=== PATIENT | female | born 1945 | race Caucasian/White ===

== ENCOUNTER 2018-04-15 08:41 | Inpatient (IN) | payer MEDICARE, OTHER ==
[2018-04-13 10:22] LABS: BASOPHILS # (AUTO) 0.01 x10^3/uL (0-0.1); BASOPHILS % (AUTO) 0 % (0-1); EOSINOPHILS # (AUTO) 0.19 x10^3/uL (0-0.4); EOSINOPHILS % (AUTO) 3 % (1-7); LYMPHOCYTES # (AUTO) 0.77 x10^3/uL (1-3.4); LYMPHOCYTES % (AUTO) 12 % (22-44); MD NO; MEAN CORPUSCULAR HEMOGLOBIN 35.1 pg (27.0-34.8); MEAN CORPUSCULAR HGB CONC 33.6 g/dL (32.4-35.8); MEAN CORPUSCULAR VOLUME 104.4 fL (80-100); MEAN PLATELET VOLUME 6.4 fL (7.4-10.4); MONOCYTES # (AUTO) 0.46 x10^3/uL (0.2-0.8); MONOCYTES % (AUTO) 7 % (2-9); NEUTROPHILS # (AUTO) 4.78 x10^3/uL (1.8-6.8); NEUTROPHILS % (AUTO) 77 % (42-75); PLATELET COUNT 237 x10^3/uL (130-400); RED BLOOD COUNT 4.03 x10^6/uL (3.82-5.3); RED CELL DISTRIBUTION WIDTH 14.8 % (9.6-15.2)
[2018-04-13 10:32] LABS: INTERNATIONAL NORMALIZED RATIO 1.08 (0.93-1.1); PROTHROMBIN TIME 11.2 Seconds (9.6-11.5)
[2018-04-13 10:36] LABS: ALBUMIN 3.3 g/dL (3.4-5.0); ANION GAP 5 mmol/L (5-15); CALCIUM 8.8 mg/dL (8.5-10.1); CHLORIDE 107 mmol/L (98-107)
[2018-04-13 10:38] LABS: HEMOGLOBIN A1C 5.5 % (4.2-6.3)
[2018-04-13 10:39] LABS: ALANINE AMINOTRANSFERASE 27 U/L (12-78); ALKALINE PHOSPHATASE 111 U/L (45-117); BILIRUBIN,TOTAL 0.8 mg/dL (0.2-1.0); CREATININE 0.81 mg/dL (0.55-1.02); TOTAL PROTEIN 7.4 g/dL (6.4-8.2)
[~2018-04-15] VITALS: Ht 160 cm; Wt 86.6 kg
[~2018-04-15 08:41] MED LIST: ALBU8.5H5 INH; ASCO10004 PO; ATEN25TA PO; ATEN50TA41 PO; BUPR300T4 PO; CALCIUM, MAG, ZINC PO; CELE200C PO; CETI10TA24 PO; CHOL20002 PO; COLE625T12 PO; CYCL1DRO EACHEYE; DIAZ5TAB PO; DIPH1TAB PO; DOCU-131 PO; EPINEPHRINE 1 MG/ML, 1ML ONE; ERGO500017 PO; FERR325T18 PO; FLUO10CA7 PO; FLUO40CA9 PO; FLUT16SP NS; FLUT1DIS3 INH; FURO20TA3 PO; GLUC1CAP48 PO; HYDR-3237 PO; HYDR-3307 PO; HYDR-838 PO; KETOROLAC 60 MG/2 ML ONE; LACT1CAP15 PO; MESA500C PO; MORP20CA18 PO; MORP40CA2 PO; MULT-224 PO; MUPI22OI2 NAS; NYST15OI2 TP; OMEP1CAP25 PO; POTA20TA6 PO; PRAM0.25 PO; QUIN324C3 OP; QUIN324C3 PO; RISE5TAB PO; RIVA10TA PO; ROPIvacaine/PF 0.5%, 30 ML ONE; SODIUM CHLORIDE 0.9% 100 ML ONE; TORS20TA2 PO; TRAM50TA2 PO; TRANEXAMIC ACID 100 MG/ML, 10ML ONE; VITA150T PO; ZOLP10TA5 PO; ZOLP5TAB6 PO; [UNRECOGNIZED DRUG - CODE] PO; [UNRECOGNIZED DRUG - OTHER] PO; [UNRECOGNIZED DRUG - OTHER] TP
[2018-04-15] MEDS ORDERED: GABAPENTIN 300 MG CAPSULE PO ONE (09:00)
[2018-04-15] MEDS ORDERED: ACETAMINOPHEN 500 MG TABLET PO ONE (09:00)
[2018-04-15] MEDS ORDERED: VANCOMYCIN PER PHARMACY MC ONE (09:02)
[2018-04-15] MEDS ORDERED: ALBUTEROL SULFATE 2.5 MG/3 ML NPPB PRN ×2 (09:30→10:00)
[2018-04-15] MEDS ORDERED: EPHEDRINE 50 MG/ML, 1ML IVPush PRN (09:30)
[2018-04-15] MEDS ORDERED: ONDANSETRON ODT 8 MG PO ONE (09:30)
[2018-04-15] MEDS ORDERED: HYDROcodone/APAP 7.5-325MG/15ML UDC PO PRN (09:30)
[2018-04-15] MEDS ORDERED: VANCOMYCIN 1,500 MG in SODIUM CHLORIDE 0.9% 250 ML IV ONE (09:30)
[2018-04-15] MEDS ORDERED: hydrALAzine 20 MG/ML, 1ML IV PRN (09:30)
[2018-04-15] MEDS ORDERED: PHARMACOKINETIC CONSULTATION MC ONE (09:30)
[2018-04-15] MEDS ORDERED: METOPROLOL 1 MG/ML, 5ML IV PRN (09:30)
[2018-04-15] MEDS ORDERED: OXYcodone IR 5MG TABLET PO ONE (09:30)
[2018-04-15] MEDS ORDERED: PROMETHAZINE 25 MG/ML, 1ML IV PRN (09:30)
[2018-04-15] MEDS ORDERED: HALOPERIDOL 5 MG/ML IV PRN (09:30)
[2018-04-15] MEDS ORDERED: LABETALOL 5MG/ML, 20ML IV PRN (09:30)
[2018-04-15] MEDS ORDERED: LACTATED RINGERS 1,000 ML IV SCH (09:48)
[2018-04-15] MEDS ORDERED: MAGNESIUM HYDROXIDE 8%, 30ML UDC PO PRN (10:00)
[2018-04-15] MEDS ORDERED: OXYcodone IR 5MG TABLET PO PRN (10:00)
[2018-04-15] MEDS ORDERED: BISACODYL 10 MG SUPP PR PRN (10:00)
[2018-04-15] MEDS ORDERED: ACETAMINOPHEN 650 MG/20.3 ML UDC PO PRN (10:00)
[2018-04-15] MEDS ORDERED: SENNA/DOCUSATE TABLET PO PRN (10:00)
[2018-04-15] MEDS ORDERED: DIPHENHYDRAMINE 50 MG CAPSULE PO PRN (10:00)
[2018-04-15] MEDS ORDERED: DIPHENOXYLATE/ATROPINE TABLET PO PRN (10:00)
[2018-04-15] MEDS ORDERED: RISEDRONATE SODIUM PO SCH (10:00)
[2018-04-15] MEDS ORDERED: ZOLPIDEM 5MG TABLET PO PRN (10:00)
[2018-04-15] MEDS ORDERED: ONDANSETRON 2MG/ML, 2ML IV PRN (10:00)
[2018-04-15] MEDS ORDERED: (Fluticasone/Salmeterol** (Advair 250-50 Diskus**) 1 PUFF) INH PRN (10:00)
[2018-04-15] MEDS ORDERED: SCOPOLAMINE PATCH, 1.5MG PATCH.TD72 TD ONE ×3 (10:00→10:01)
[2018-04-15] MEDS ORDERED: ONDANSETRON 4 MG TABLET PO PRN (10:00)
[2018-04-15] MEDS ORDERED: FENTANYL PF 250 MCG/5ML ONE (10:02)
[2018-04-15] MEDS ORDERED: CLINDAMYCIN 150 MG/ML, 6ML ONE (10:03)
[2018-04-15] MEDS ORDERED: LIDOCAINE 4%, 4 ML SYR/CANN TP ONE (10:04)
[2018-04-15] MEDS ORDERED: DEXAMETHASONE 4 MG/ML, 1ML ONE (10:16)
[2018-04-15] MEDS ORDERED: ROCURONIUM 10MG/ML,5ML ONE (10:16)
[2018-04-15] MEDS ORDERED: PROPOFOL 10 MG/ML, 20ML ONE (10:16)
[2018-04-15] MEDS ORDERED: GLYCOPYRROLATE 0.2MG/1ML, 5ML ONE (11:17)
[2018-04-15] MEDS ORDERED: NEOSTIGMINE 1 MG/ML, 10ML ONE ×2 (11:17)
[2018-04-15] MEDS ORDERED: morphine SULFATE 10 MG/ML, 1ML ONE (12:06)
[2018-04-15] MEDS ORDERED: FENTANYL PF 100 MCG/2ML ONE (12:06)
[2018-04-15] MEDS: FENTANYL PF 100 MCG/2ML IV PRN ×3 (12:09→12:33)
[2018-04-15] MEDS: MORPHINE SULFATE 4 MG/ML, 1ML IVPush PRN ×3 (12:17→12:56)
[2018-04-15] MEDS ORDERED: VANCOMYCIN 1,000 MG ONE (12:36)
[2018-04-15 13:35] VITALS: BP 104/64
[2018-04-15] MEDS: NS + 20MEQ KCL 1,000 ML IV SCH (14:27)
[2018-04-15] MEDS: CEFAZOLIN PMX 2GM/50ML 50 ML IVPB SCH ×2 (14:27→23:09)
[2018-04-15] MEDS: ASPIRIN 81 MG TABLET EC PO SCH (17:37)
[2018-04-15 19:56] VITALS: BP 91/48
[2018-04-15] MEDS ORDERED: ATENOLOL 25 MG TABLET PO SCH (21:00)
[2018-04-15] MEDS ORDERED: POTASSIUM CHLORIDE 20 MEQ TAB.ER.PRT PO SCH (21:00)
[2018-04-15] MEDS ORDERED: ZOLPIDEM 10MG TABLET PO SCH (21:00)
[2018-04-15] MEDS: TEMPLATE NON-FORMULARY MED. (Cyclosporine (Restasis) 1 DROP) EACHEYE SCH (21:00)
[2018-04-15] MEDS ORDERED: PRAMIPEXOLE 0.25MG TABLET PO SCH (21:00)
[2018-04-15] MEDS: MORPHINE SULFATE 40 MG PO SCH (21:00)
[2018-04-15] MEDS ORDERED: PRAMIPEXOLE 0.125MG TABLET ONE ×2 (21:46)
[2018-04-15] MEDS: DOCUSATE 100 MG CAPSULE PO SCH (21:52)
[2018-04-15] MEDS: HYDROcodone/APAP 5/325 TABLET PO PRN (22:10)
[2018-04-15 23:16] VITALS: BP 127/70
[2018-04-16] MEDS: HYDROcodone/APAP 5/325 TABLET PO PRN ×2 (02:05→06:10)
[2018-04-16] MEDS: NS + 20MEQ KCL 1,000 ML IV SCH ×2 (02:30→14:03)
[2018-04-16 05:05] VITALS: BP 120/57
[2018-04-16] MEDS: ASPIRIN 81 MG TABLET EC PO SCH (05:38)
[2018-04-16] MEDS ORDERED: DEXAMETHASONE 4 MG/ML, 1ML IVPush SCH (06:00)
[2018-04-16] MEDS ORDERED: ATENOLOL 25 MG TABLET PO SCH (06:00)
[2018-04-16 06:35] VITALS: BP 103/67
[2018-04-16] MEDS ORDERED: POTASSIUM CHLORIDE 20 MEQ TAB.ER.PRT PO SCH (09:00)
[2018-04-16] MEDS ORDERED: ATENOLOL 50 MG TABLET PO SCH (09:00)
[2018-04-16] MEDS ORDERED: TORSEMIDE 20 MG TABLET PO SCH (09:00)
[2018-04-16] MEDS ORDERED: FLUOXETINE HCL 20 MG CAPSULE PO SCH (09:00)
[2018-04-16] MEDS ORDERED: BUPROPION SR 150 MG TABLET PO SCH (09:00)
[2018-04-16] MEDS: MORPHINE SULFATE 40 MG PO SCH (09:08)
[2018-04-16] MEDS: TEMPLATE NON-FORMULARY MED. (Cyclosporine (Restasis) 1 DROP) EACHEYE SCH (09:08)
[2018-04-16] MEDS: DOCUSATE 100 MG CAPSULE PO SCH (09:09)
[2018-04-16] MEDS ORDERED: TRAM50TA2 PO ×2 (11:08→15:33)
[2018-04-16] MEDS ORDERED: OXYC5CAP2 PO (11:09)
[2018-04-16 14:00] VITALS: BP 130/67
[2018-04-16] MEDS ORDERED: HYDR-3240 PO (15:32)
[2018-04-16] MEDS ORDERED: ASPI-621 PO (15:33)
== END 2018-04-16 18:00 | disposition home or self-care (01) | DRG 470 ==
LOC: ORIP 08:41 → 4NOR 13:15
PROVIDERS: ADMIT Orthopaedic Surgery; ATTEND Orthopaedic Surgery
PROC: 0SR906A Replacement of Right Hip Joint with Oxidized Zirconium on Polyethylene Synthetic Substitute, Uncemented, Open Approach (ICD-10-PCS; principal; 2018-04-15 10:30)
DX: M16.11 Unilateral primary osteoarthritis, right hip (principal); G89.29 Other chronic pain; I10 Essential (primary) hypertension; K21.9 Gastro-esophageal reflux disease without esophagitis; Z88.0 Allergy status to penicillin; Z88.8 Allergy status to other drugs, medicaments and biological substances; J45.909 Unspecified asthma, uncomplicated
CPT/HCPCS: 36415; 72170; 76000; 80053; 83036; 85014; 85018; 85025; 85610; 85730; 86850; 86900; 87081; C1713; J0171; J0690; J1100; J1885; J2704; J2710; J2795; J3010; J3370; J3480; J3490; Q0162; C1776; J7050; J7120

== ENCOUNTER 2018-04-30 19:30 | Emergency (ER) | payer MEDICARE, OTHER ==
[~2018-04-30] VITALS: Ht 160 cm; Wt 75.0 kg
[~2018-04-30 19:30] MED LIST changes: +ASPI-621 PO; -EPINEPHRINE 1 MG/ML, 1ML ONE; +HYDR-3240 PO; -KETOROLAC 60 MG/2 ML ONE; +OXYC5CAP2 PO; -ROPIvacaine/PF 0.5%, 30 ML ONE; -SODIUM CHLORIDE 0.9% 100 ML ONE; -TRANEXAMIC ACID 100 MG/ML, 10ML ONE
[2018-04-30 21:42] VITALS: BP 142/77
== END 2018-04-30 21:44 | disposition home or self-care (01) ==
LOC: ED 20:58
DX: M25.461 Effusion, right knee (principal)
CPT/HCPCS: 29505; 99284

== ENCOUNTER 2018-05-16 17:14 | Inpatient (IN) | payer MEDICARE, OTHER ==
[~2018-05-16] VITALS: Ht 168.9 cm; Wt 83.7 kg
[2018-05-16] MEDS ORDERED: SODIUM CHLORIDE FLUSH 10ML SYR IVF ONE (18:00)
[2018-05-16 18:06] LABS: BASOPHILS # (AUTO) 0.01 x10^3/uL (0-0.1); BASOPHILS % (AUTO) 0 % (0-1); EOSINOPHILS # (AUTO) 0.17 x10^3/uL (0-0.4); EOSINOPHILS % (AUTO) 3 % (1-7); LYMPHOCYTES # (AUTO) 0.64 x10^3/uL (1-3.4); LYMPHOCYTES % (AUTO) 11 % (22-44); MD NO; MEAN CORPUSCULAR HEMOGLOBIN 33.6 pg (27.0-34.8); MEAN CORPUSCULAR HGB CONC 32.6 g/dL (32.4-35.8); MEAN CORPUSCULAR VOLUME 103.1 fL (80-100); MEAN PLATELET VOLUME 6.5 fL (7.4-10.4); MONOCYTES # (AUTO) 0.42 x10^3/uL (0.2-0.8); MONOCYTES % (AUTO) 7 % (2-9); NEUTROPHILS # (AUTO) 4.84 x10^3/uL (1.8-6.8); NEUTROPHILS % (AUTO) 80 % (42-75); PLATELET COUNT 336 x10^3/uL (130-400); RED BLOOD COUNT 3.15 x10^6/uL (3.82-5.3); RED CELL DISTRIBUTION WIDTH 13.8 % (9.6-15.2)
[2018-05-16 18:10] LABS: INTERNATIONAL NORMALIZED RATIO 1.17 (0.93-1.1)
[2018-05-16 18:15] LABS: ALBUMIN 2.6 g/dL (3.4-5.0); CALCIUM 8.7 mg/dL (8.5-10.1); CREATININE 0.83 mg/dL (0.55-1.02)
[2018-05-16 18:37] LABS: ANION GAP 3 mmol/L (5-15); CHLORIDE 109 mmol/L (98-107)
[2018-05-16 18:39] LABS: CREATINE KINASE, TOTAL 46 U/L (26-192)
[2018-05-16] MEDS ORDERED: RISE5TAB PO (19:48)
[2018-05-16] MEDS ORDERED: ONDANSETRON 2MG/ML, 2ML IVPush PRN (20:00)
[2018-05-16] MEDS ORDERED: hydrALAzine 20 MG/ML, 1ML IVPush PRN (20:00)
[2018-05-16] MEDS ORDERED: ENOXAPARIN 40 MG/0.4 ML SQ SCH (20:00)
[2018-05-16] MEDS ORDERED: HEPARIN 5,000 UNITS/ML, 1ML SQ SCH (20:00)
[2018-05-16 20:45] VITALS: BP 124/54
[2018-05-17 01:15] VITALS: BP 106/55
[2018-05-17] MEDS: SODIUM CHLORIDE 0.9% 1,000 ML IV SCH ×3 (01:46→23:33)
[2018-05-17 05:22] LABS: BASOPHILS # (AUTO) 0.02 x10^3/uL (0-0.1); BASOPHILS % (AUTO) 1 % (0-1); EOSINOPHILS # (AUTO) 0.22 x10^3/uL (0-0.4); EOSINOPHILS % (AUTO) 6 % (1-7); LYMPHOCYTES # (AUTO) 0.84 x10^3/uL (1-3.4); LYMPHOCYTES % (AUTO) 23 % (22-44); MD NO; MEAN CORPUSCULAR HEMOGLOBIN 34.2 pg (27.0-34.8); MEAN CORPUSCULAR HGB CONC 33.1 g/dL (32.4-35.8); MEAN CORPUSCULAR VOLUME 103.4 fL (80-100); MEAN PLATELET VOLUME 6.5 fL (7.4-10.4); MONOCYTES # (AUTO) 0.28 x10^3/uL (0.2-0.8); MONOCYTES % (AUTO) 8 % (2-9); NEUTROPHILS # (AUTO) 2.24 x10^3/uL (1.8-6.8); NEUTROPHILS % (AUTO) 62 % (42-75); PLATELET COUNT 276 x10^3/uL (130-400); RED CELL DISTRIBUTION WIDTH 13.8 % (9.6-15.2)
[2018-05-17 05:39] LABS: ANION GAP 8 mmol/L (5-15); CALCIUM 8.3 mg/dL (8.5-10.1); CHLORIDE 110 mmol/L (98-107)
[2018-05-17 05:40] LABS: CREATININE 0.69 mg/dL (0.55-1.02)
[2018-05-17 07:40] VITALS: BP 115/58
[2018-05-17 09:10] LABS: % IRON SATURATION 15 % (20-55); IRON LEVEL 38 mcg/dL (50-170); TOTAL IRON BINDING CAPACITY 251 mcg/dL (250-450)
[2018-05-17 13:28] VITALS: BP 120/62
[2018-05-17] MEDS ORDERED: TRANEXAMIC ACID 100 MG/ML, 10ML ONE ×2 (15:19)
[2018-05-17] MEDS ORDERED: KETOROLAC 60 MG/2 ML ONE (15:19)
[2018-05-17] MEDS ORDERED: VANCOMYCIN 1,000 MG ONE (15:20)
[2018-05-17] MEDS ORDERED: EPINEPHRINE 1 MG/ML, 1ML ONE (15:20)
[2018-05-17] MEDS ORDERED: ROPIvacaine/PF 0.2%, 20 ML ONE (15:20)
[2018-05-17] MEDS ORDERED: SODIUM CHLORIDE 0.9% 100 ML ONE (15:20)
[2018-05-17] MEDS ORDERED: ONDANSETRON 2MG/ML, 2ML ONE (15:58)
[2018-05-17] MEDS ORDERED: PROPOFOL 10 MG/ML, 20ML ONE (15:58)
[2018-05-17] MEDS ORDERED: DEXAMETHASONE 4 MG/ML, 1ML ONE (15:58)
[2018-05-17] MEDS ORDERED: FENTANYL PF 250 MCG/5ML ONE ×2 (15:58→17:06)
[2018-05-17] MEDS ORDERED: ROCURONIUM 10 MG/ML,10ML ONE (15:58)
[2018-05-17] MEDS ORDERED: MEPERIDINE/PF 25MG/0.5ML IVPush PRN (17:00)
[2018-05-17] MEDS ORDERED: ACETAMINOPHEN 325 MG TABLET PO PRN (17:00)
[2018-05-17] MEDS ORDERED: OXYcodone 5 MG/5 ML ORAL.SOL UDC PO PRN (17:00)
[2018-05-17] MEDS ORDERED: PROMETHAZINE 12.5 MG SUPP PR PRN (17:00)
[2018-05-17] MEDS ORDERED: ONDANSETRON ODT 8 MG PO PRN (17:00)
[2018-05-17] MEDS ORDERED: FENTANYL PF 100 MCG/2ML ONE ×4 (18:00→18:25)
[2018-05-17] MEDS ORDERED: HYDROmorphone 2 MG/ML, 1ML ONE (18:25)
[2018-05-17] MEDS: HYDROmorphone 1 MG/ML, 1ML IV PRN ×5 (18:26→19:20)
[2018-05-17] MEDS: FENTANYL PF 100 MCG/2ML IV PRN ×2 (18:34→18:48)
[2018-05-17] MEDS ORDERED: DIAZEPAM 5 MG/ML, 2ML IV ONE (19:00)
[2018-05-17 20:00] VITALS: BP 129/73
[2018-05-17] MEDS: morphine SULFATE 10 MG/ML, 1ML IVPush PRN ×2 (20:36→21:13)
[2018-05-17] MEDS: ACETAMINOPHEN 325 MG TABLET PO PRN (21:13)
[2018-05-17] MEDS: KETOROLAC 30 MG/1 ML IVPush SCH (21:13)
[2018-05-17] MEDS: MORPHINE SULFATE 20 MG HOMEMEDPO SCH (22:51)
[2018-05-17] MEDS: CEFAZOLIN PMX 2GM/50ML 50 ML IVPB SCH (23:33)
[2018-05-18] VITALS: BP 105/58
[2018-05-18] MEDS: ACETAMINOPHEN 325 MG TABLET PO PRN ×2 (01:16→07:06)
[2018-05-18] MEDS: morphine SULFATE 10 MG/ML, 1ML IVPush PRN ×2 (02:39→09:08)
[2018-05-18] MEDS: KETOROLAC 30 MG/1 ML IVPush SCH ×4 (03:34→22:12)
[2018-05-18 03:35] VITALS: BP 126/70
[2018-05-18 05:13] LABS: BASOPHILS # (AUTO) 0.04 x10^3/uL (0-0.1); BASOPHILS % (AUTO) 1 % (0-1); EOSINOPHILS # (AUTO) 0.17 x10^3/uL (0-0.4); EOSINOPHILS % (AUTO) 4 % (1-7); LYMPHOCYTES # (AUTO) 0.56 x10^3/uL (1-3.4); LYMPHOCYTES % (AUTO) 12 % (22-44); MD NO; MEAN CORPUSCULAR HEMOGLOBIN 34.3 pg (27.0-34.8); MEAN PLATELET VOLUME 6.3 fL (7.4-10.4); MONOCYTES # (AUTO) 0.22 x10^3/uL (0.2-0.8); MONOCYTES % (AUTO) 5 % (2-9); NEUTROPHILS # (AUTO) 3.62 x10^3/uL (1.8-6.8); NEUTROPHILS % (AUTO) 79 % (42-75); PLATELET COUNT 267 x10^3/uL (130-400); RED BLOOD COUNT 2.35 x10^6/uL (3.82-5.3); RED CELL DISTRIBUTION WIDTH 13.9 % (9.6-15.2)
[2018-05-18 05:14] LABS: ANION GAP 4 mmol/L (5-15); CALCIUM 7.6 mg/dL (8.5-10.1); CHLORIDE 110 mmol/L (98-107); CREATININE 0.62 mg/dL (0.55-1.02)
[2018-05-18] MEDS: CEFAZOLIN PMX 2GM/50ML 50 ML IVPB SCH (07:26)
[2018-05-18] MEDS: SODIUM CHLORIDE 0.9% 1,000 ML IV SCH (07:27)
[2018-05-18 07:30] VITALS: BP 110/64
[2018-05-18] MEDS: ASPIRIN 81 MG TABLET CHEW PO SCH ×3 (09:08→22:11)
[2018-05-18] MEDS: MORPHINE SULFATE 20 MG HOMEMEDPO SCH ×2 (10:01→22:12)
[2018-05-18] MEDS: HYDROcodone/APAP 5/325 TABLET PO PRN ×4 (10:59→22:32)
[2018-05-18] MEDS ORDERED: HYDROcodone/APAP 5/325 TABLET PO PRN (12:00)
[2018-05-18] MEDS: (Fluticasone/Salmeterol** (Advair 250-50 Diskus**) 1 PUFF) INH SCH (12:49)
[2018-05-18 14:45] VITALS: BP 115/71
[2018-05-18] MEDS: IRON SUCROSE COMPLEX 100MG/5ML IV SCH (14:59)
[2018-05-18] MEDS: CEPHALEXIN 500 MG CAPSULE PO SCH ×2 (17:10→22:29)
[2018-05-18 18:37] VITALS: BP 136/67
[2018-05-18] MEDS ORDERED: TEMPLATE NON-FORMULARY MED. (Gluc 2KCL/Chondr/Coll Hy/Hy Ac** (Glucosamine & Chondroitin C PO SCH (21:00)
[2018-05-18] MEDS: MULTIVITS,STRESS FORMULA 1 TABLET PO SCH (22:10)
[2018-05-18] MEDS: ASPIRIN 81 MG TABLET EC PO SCH (22:11)
[2018-05-18] MEDS: POTASSIUM CHLORIDE 20 MEQ TAB.ER.PRT PO SCH (22:11)
[2018-05-18] MEDS: CHOLECALCIFEROL 1,000 UNIT TABLET PO SCH (22:11)
[2018-05-18] MEDS: ATENOLOL 25 MG TABLET PO SCH (22:11)
[2018-05-18] MEDS: COLESEVELAM 625 MG TABLET PO SCH (22:11)
[2018-05-18] MEDS ORDERED: PRAMIPEXOLE 0.125MG TABLET ONE (22:25)
[2018-05-18] MEDS ORDERED: CEPHALEXIN 250 MG CAPSULE ONE (22:26)
[2018-05-18] MEDS: PRAMIPEXOLE 0.25MG TABLET PO SCH (22:30)
[2018-05-19 01:40] VITALS: BP 130/64
[2018-05-19] MEDS: KETOROLAC 30 MG/1 ML IVPush SCH (04:06)
[2018-05-19 07:45] VITALS: BP 110/59
[2018-05-19] MEDS: MORPHINE SULFATE 20 MG HOMEMEDPO SCH ×2 (09:00→21:47)
[2018-05-19] MEDS: ASPIRIN 81 MG TABLET EC PO SCH ×2 (09:00→21:49)
[2018-05-19] MEDS ORDERED: MESALAMINE 250 MG CAPSULE.ER PO SCH (09:00)
[2018-05-19] MEDS: CHOLECALCIFEROL 1,000 UNIT TABLET PO SCH ×2 (09:00→21:52)
[2018-05-19] MEDS: (Fluticasone/Salmeterol** (Advair 250-50 Diskus**) 1 PUFF) INH SCH (09:00)
[2018-05-19] MEDS: COLESEVELAM 625 MG TABLET PO SCH ×2 (09:36→21:52)
[2018-05-19] MEDS: FLUOXETINE HCL 20 MG CAPSULE PO SCH (09:36)
[2018-05-19] MEDS: CETIRIZINE 10 MG TABLET PO SCH (09:36)
[2018-05-19] MEDS: MULTIVITAMIN 1 TABLET PO SCH (09:36)
[2018-05-19] MEDS: CEPHALEXIN 500 MG CAPSULE PO SCH ×2 (09:36→21:49)
[2018-05-19] MEDS: TORSEMIDE 20 MG TABLET PO SCH (09:37)
[2018-05-19] MEDS: ASPIRIN 81 MG TABLET CHEW PO SCH ×2 (09:37→21:49)
[2018-05-19] MEDS: BUPROPION SR 150 MG TABLET PO SCH (09:37)
[2018-05-19] MEDS: ATENOLOL 50 MG TABLET PO SCH (09:37)
[2018-05-19] MEDS: IRON SUCROSE COMPLEX 100MG/5ML IV SCH (09:37)
[2018-05-19] MEDS: MULTIVITS,STRESS FORMULA 1 TABLET PO SCH ×2 (09:37→21:52)
[2018-05-19] MEDS: SODIUM CHLORIDE 0.9% 1,000 ML IV SCH (10:32)
[2018-05-19 12:08] LABS: BASOPHILS # (AUTO) 0.02 x10^3/uL (0-0.1); BASOPHILS % (AUTO) 0 % (0-1); EOSINOPHILS # (AUTO) 0.27 x10^3/uL (0-0.4); EOSINOPHILS % (AUTO) 5 % (1-7); LYMPHOCYTES # (AUTO) 0.34 x10^3/uL (1-3.4); LYMPHOCYTES % (AUTO) 6 % (22-44); MD NO; MEAN CORPUSCULAR HEMOGLOBIN 34.2 pg (27.0-34.8); MEAN CORPUSCULAR VOLUME 103.5 fL (80-100); MEAN PLATELET VOLUME 6.6 fL (7.4-10.4); MONOCYTES # (AUTO) 0.33 x10^3/uL (0.2-0.8); MONOCYTES % (AUTO) 6 % (2-9); NEUTROPHILS # (AUTO) 4.58 x10^3/uL (1.8-6.8); NEUTROPHILS % (AUTO) 83 % (42-75); PLATELET COUNT 286 x10^3/uL (130-400); RED BLOOD COUNT 2.27 x10^6/uL (3.82-5.3); RED CELL DISTRIBUTION WIDTH 14.4 % (9.6-15.2)
[2018-05-19 12:15] LABS: ANION GAP 6 mmol/L (5-15); CALCIUM 7.7 mg/dL (8.5-10.1); CHLORIDE 111 mmol/L (98-107); CREATININE 0.65 mg/dL (0.55-1.02)
[2018-05-19 13:20] VITALS: BP 107/50
[2018-05-19] MEDS: HYDROcodone/APAP 5/325 TABLET PO PRN (14:20)
[2018-05-19 20:00] VITALS: BP 143/52
[2018-05-19] MEDS ORDERED: PRAMIPEXOLE 0.5MG TABLET ONE (21:00)
[2018-05-19] MEDS: POTASSIUM CHLORIDE 20 MEQ TAB.ER.PRT PO SCH (21:49)
[2018-05-19] MEDS: PRAMIPEXOLE 0.25MG TABLET PO SCH (21:50)
[2018-05-19] MEDS: ATENOLOL 25 MG TABLET PO SCH (21:51)
[2018-05-19] MEDS: MESALAMINE PO SCH (21:52)
[2018-05-19] MEDS: [UNRECOGNIZED DRUG - OTHER] PO SCH (21:52)
[2018-05-20 00:46] VITALS: BP 103/45
[2018-05-20] MEDS: HYDROcodone/APAP 5/325 TABLET PO PRN (00:59)
[2018-05-20] MEDS: SODIUM CHLORIDE 0.9% 1,000 ML IV SCH (00:59)
[2018-05-20 05:39] LABS: FOLATE LEVEL > 20.0 ng/mL (3.1-17.5)
[2018-05-20 07:35] VITALS: BP 128/54
[2018-05-20] MEDS ORDERED: FERR324T8 PO (08:15)
[2018-05-20] MEDS ORDERED: PENTASA PO (08:15)
[2018-05-20] MEDS ORDERED: IRON SUCROSE COMPLEX 100MG/5ML IV SCH (09:00)
[2018-05-20] MEDS: ASPIRIN 81 MG TABLET CHEW PO SCH (09:12)
[2018-05-20] MEDS: COLESEVELAM 625 MG TABLET PO SCH (09:12)
[2018-05-20] MEDS: BUPROPION SR 150 MG TABLET PO SCH (09:12)
[2018-05-20] MEDS: MORPHINE SULFATE 20 MG HOMEMEDPO SCH (09:12)
[2018-05-20] MEDS: ATENOLOL 50 MG TABLET PO SCH (09:12)
[2018-05-20] MEDS: TORSEMIDE 20 MG TABLET PO SCH (09:12)
[2018-05-20] MEDS: MULTIVITS,STRESS FORMULA 1 TABLET PO SCH (09:12)
[2018-05-20] MEDS: CHOLECALCIFEROL 1,000 UNIT TABLET PO SCH (09:12)
[2018-05-20] MEDS: MULTIVITAMIN 1 TABLET PO SCH (09:13)
[2018-05-20] MEDS: CETIRIZINE 10 MG TABLET PO SCH (09:13)
[2018-05-20] MEDS: CEPHALEXIN 500 MG CAPSULE PO SCH (09:13)
[2018-05-20] MEDS: FLUOXETINE HCL 20 MG CAPSULE PO SCH (09:13)
[2018-05-20] MEDS: (Fluticasone/Salmeterol** (Advair 250-50 Diskus**) 1 PUFF) INH SCH (09:14)
[2018-05-20] MEDS: [UNRECOGNIZED DRUG - OTHER] PO SCH (09:17)
[2018-05-20] MEDS: MESALAMINE PO SCH (09:17)
[2018-05-20 09:23] LABS: BASOPHILS # (AUTO) 0.03 x10^3/uL (0-0.1); BASOPHILS % (AUTO) 1 % (0-1); EOSINOPHILS # (AUTO) 0.45 x10^3/uL (0-0.4); EOSINOPHILS % (AUTO) 7 % (1-7); LYMPHOCYTES # (AUTO) 0.78 x10^3/uL (1-3.4); LYMPHOCYTES % (AUTO) 12 % (22-44); MD NO; MEAN CORPUSCULAR HEMOGLOBIN 33.5 pg (27.0-34.8); MEAN CORPUSCULAR HGB CONC 32.3 g/dL (32.4-35.8); MEAN CORPUSCULAR VOLUME 103.6 fL (80-100); MEAN PLATELET VOLUME 7.5 fL (7.4-10.4); MONOCYTES # (AUTO) 0.48 x10^3/uL (0.2-0.8); MONOCYTES % (AUTO) 7 % (2-9); NEUTROPHILS # (AUTO) 4.94 x10^3/uL (1.8-6.8); NEUTROPHILS % (AUTO) 74 % (42-75); PLATELET COUNT 315 x10^3/uL (130-400); RED BLOOD COUNT 2.35 x10^6/uL (3.82-5.3); RED CELL DISTRIBUTION WIDTH 14.7 % (9.6-15.2)
[2018-05-20 14:47] VITALS: BP 102/62
[2018-05-21] MEDS ORDERED: RISEDRONATE 35 MG PO SCH (06:00)
[2018-05-21] MEDS ORDERED: RISEDRONATE HOMEMEDPO SCH (06:00)
== END 2018-05-20 16:16 | DRG 466 ==
LOC: ED 18:40 → EDIP 19:13 → 4NOR 21:02
PROVIDERS: ADMIT Hospitalist; ATTEND Hospitalist
PROC: 0PSJXZZ Reposition Left Radius, External Approach (ICD-10-PCS; 2018-05-17)
PROC: 0QH604Z Insertion of Internal Fixation Device into Right Upper Femur, Open Approach (ICD-10-PCS; 2018-05-17)
PROC: 0SWR0JZ Revision of Synthetic Substitute in Right Hip Joint, Femoral Surface, Open Approach (ICD-10-PCS; principal; 2018-05-17 16:00)
DX: S72.141A Displaced intertrochanteric fracture of right femur, initial encounter for closed fracture (principal); E43 Unspecified severe protein-calorie malnutrition; S52.502A Unspecified fracture of the lower end of left radius, initial encounter for closed fracture; K50.90 Crohn's disease, unspecified, without complications; M97.01XA Periprosthetic fracture around internal prosthetic right hip joint, initial encounter; M19.90 Unspecified osteoarthritis, unspecified site; W18.39XA Other fall on same level, initial encounter; Y93.89 Activity, other specified; Y99.8 Other external cause status; Y92.009 Unspecified place in unspecified non-institutional (private) residence as the place of occurrence of the external cause; D53.9 Nutritional anemia, unspecified; E03.9 Hypothyroidism, unspecified; I10 Essential (primary) hypertension; K21.9 Gastro-esophageal reflux disease without esophagitis; M81.0 Age-related osteoporosis without current pathological fracture; Z96.651 Presence of right artificial knee joint
CPT/HCPCS: 36415; 71045; 72170; 80048; 82040; 82550; 82607; 82746; 83540; 83550; 83735; 84100; 85025; 85610; 86850; 86900; 93005; 93970; 99285; J0171; J0690; J1100; J1170; J1756; J1885; J2405; J2704; J2795; J3010; J3360; J3370; C1776; J2270; J7030

== ENCOUNTER 2018-09-08 00:41 | Emergency (ER) | payer MEDICARE, OTHER ==
[~2018-09-08] VITALS: Ht 157.5 cm; Wt 63.8 kg
[~2018-09-08 00:41] MED LIST changes: -CHOL20002 PO; +CHOL200052 PO; +FERR324T8 PO; +PENTASA PO
[2018-09-08] MEDS ORDERED: MORPHINE SULFATE 4 MG/ML, 1ML ONE ×2 (01:05→02:06)
[2018-09-08] MEDS: MORPHINE SULFATE 4 MG/ML, 1ML IVPush PRN ×2 (01:08→02:08)
[2018-09-08 01:52] VITALS: BP 136/58
[2018-09-08] MEDS ORDERED: PROPOFOL 10 MG/ML, 20ML IVPush ONE (02:00)
[2018-09-08] MEDS ORDERED: PROPOFOL 10 MG/ML, 20ML ONE ×3 (02:02→02:44)
[2018-09-08] MEDS ORDERED: LEVO50TA PO (02:32)
[2018-09-08] MEDS ORDERED: ZOLP-413 PO (02:32)
[2018-09-08] MEDS ORDERED: CELE200C PO (02:32)
[2018-09-08] MEDS ORDERED: IBANDRONATE PO (02:32)
[2018-09-08] MEDS ORDERED: MELO15TA24 PO (02:32)
== END 2018-09-08 04:20 | disposition home or self-care (01) ==
LOC: ED 04:00
DX: S73.014A Posterior dislocation of right hip, initial encounter (principal); K21.9 Gastro-esophageal reflux disease without esophagitis; F32.9 Major depressive disorder, single episode, unspecified; E03.9 Hypothyroidism, unspecified; K50.90 Crohn's disease, unspecified, without complications; X58.XXXA Exposure to other specified factors, initial encounter; Y93.89 Activity, other specified; Y92.89 Other specified places as the place of occurrence of the external cause; Y99.8 Other external cause status
CPT/HCPCS: 27250; 72170; 73502; 73564; 96374; 99152; 99153; 99285; J2704

== ENCOUNTER 2018-09-16 10:28 | Inpatient (IN) | payer MEDICARE, OTHER ==
[~2018-09-16] VITALS: Ht 160 cm; Wt 71.0 kg
[~2018-09-16 10:28] MED LIST changes: +EPINEPHRINE 1 MG/ML, 1ML ONE; +IBANDRONATE PO; +KETOROLAC 60 MG/2 ML ONE; +LEVO50TA PO; +MELO15TA24 PO; +ROPIvacaine/PF 0.5%, 20 ML ONE; +SODIUM CHLORIDE 0.9% 100 ML ONE; +TRANEXAMIC ACID 100 MG/ML, 10ML ONE; +VANCOMYCIN 1,000 MG ONE; +ZOLP-413 PO
[2018-09-16] MEDS ORDERED: LACTATED RINGERS 1,000 ML IV SCH (11:19)
[2018-09-16] MEDS ORDERED: LABETALOL 5MG/ML, 20ML IV PRN (11:30)
[2018-09-16] MEDS ORDERED: hydrALAzine 20 MG/ML, 1ML IV PRN (11:30)
[2018-09-16] MEDS ORDERED: DIPHENHYDRAMINE 50 MG/ML, 1ML IVPush PRN (11:30)
[2018-09-16] MEDS ORDERED: PROCHLORPERAZINE 5 MG/ML, 2ML IV PRN (11:30)
[2018-09-16] MEDS ORDERED: MEPERIDINE/PF 25MG/0.5ML IVPush PRN (11:30)
[2018-09-16] MEDS ORDERED: GABAPENTIN 300 MG CAPSULE PO ONE (11:30)
[2018-09-16] MEDS ORDERED: ACETAMINOPHEN 500 MG TABLET PO ONE (11:30)
[2018-09-16] MEDS ORDERED: FENTANYL PF 250 MCG/5ML ONE (11:36)
[2018-09-16 11:48] LABS: BASOPHILS # (AUTO) 0.02 x10^3/uL (0-0.1); BASOPHILS % (AUTO) 1 % (0-1); EOSINOPHILS # (AUTO) 0.24 x10^3/uL (0-0.4); EOSINOPHILS % (AUTO) 5 % (1-7); LYMPHOCYTES % (AUTO) 15 % (22-44); MD NO; MEAN CORPUSCULAR HEMOGLOBIN 30.4 pg (27.0-34.8); MEAN CORPUSCULAR HGB CONC 33.5 g/dL (32.4-35.8); MEAN PLATELET VOLUME 6.7 fL (7.4-10.4); MONOCYTES # (AUTO) 0.33 x10^3/uL (0.2-0.8); MONOCYTES % (AUTO) 7 % (2-9); NEUTROPHILS % (AUTO) 72 % (42-75); PLATELET COUNT 253 x10^3/uL (130-400); RED BLOOD COUNT 3.61 x10^6/uL (3.82-5.3); RED CELL DISTRIBUTION WIDTH 20.3 % (9.6-15.2)
[2018-09-16 11:50] VITALS: BP 145/78
[2018-09-16 11:56] LABS: INTERNATIONAL NORMALIZED RATIO 1.11 (0.93-1.1); PROTHROMBIN TIME 11.4 Seconds (9.6-11.5)
[2018-09-16 11:57] LABS: ALBUMIN 3.2 g/dL (3.4-5.0); ANION GAP 5 mmol/L (5-15); CALCIUM 8.3 mg/dL (8.5-10.1); CHLORIDE 110 mmol/L (98-107); CREATININE 0.78 mg/dL (0.55-1.02)
[2018-09-16] MEDS ORDERED: BISACODYL 10 MG SUPP PR PRN (12:00)
[2018-09-16] MEDS ORDERED: SCOPOLAMINE PATCH, 1.5MG PATCH.TD72 TD ONE (12:00)
[2018-09-16] MEDS ORDERED: ONDANSETRON 4 MG TABLET PO PRN (12:00)
[2018-09-16] MEDS ORDERED: DIPHENHYDRAMINE 50 MG CAPSULE PO PRN (12:00)
[2018-09-16] MEDS ORDERED: ONDANSETRON 2MG/ML, 2ML IV PRN (12:00)
[2018-09-16] MEDS ORDERED: ZOLPIDEM 5MG TABLET PO PRN (12:00)
[2018-09-16] MEDS ORDERED: OXYcodone IR 5MG TABLET PO PRN (12:00)
[2018-09-16] MEDS ORDERED: MAGNESIUM HYDROXIDE 8%, 30ML UDC PO PRN (12:00)
[2018-09-16] MEDS ORDERED: SENNA/DOCUSATE TABLET PO PRN (12:00)
[2018-09-16] MEDS ORDERED: ACETAMINOPHEN 650 MG/20.3 ML UDC PO PRN (12:00)
[2018-09-16 12:02] LABS: ALANINE AMINOTRANSFERASE 22 U/L (12-78); ALKALINE PHOSPHATASE 92 U/L (45-117); BILIRUBIN,TOTAL 0.6 mg/dL (0.2-1.0); TOTAL PROTEIN 6.7 g/dL (6.4-8.2)
[2018-09-16] MEDS ORDERED: SUCCINYLCHOLINE 20 MG/ML, 10ML ONE (12:23)
[2018-09-16] MEDS ORDERED: NEOSTIGMINE 1 MG/ML, 10ML ONE (12:23)
[2018-09-16] MEDS ORDERED: ROCURONIUM 10MG/ML,5ML ONE (12:23)
[2018-09-16] MEDS ORDERED: CEFAZOLIN 1,000 MG ONE (12:23)
[2018-09-16] MEDS ORDERED: ONDANSETRON 2MG/ML, 2ML ONE (12:23)
[2018-09-16] MEDS ORDERED: PROPOFOL 10 MG/ML, 20ML ONE (12:23)
[2018-09-16] MEDS ORDERED: DEXAMETHASONE 4 MG/ML, 1ML ONE (12:23)
[2018-09-16] MEDS ORDERED: GLYCOPYRROLATE 0.2MG/1ML, 5ML ONE (12:23)
[2018-09-16] MEDS ORDERED: FENTANYL PF 100 MCG/2ML ONE ×2 (12:56→13:26)
[2018-09-16 12:57] LABS: HEMOGLOBIN A1C 5.3 % (4.2-6.3)
[2018-09-16] MEDS ORDERED: HYDROmorphone 2 MG/ML, 1ML ONE (12:58)
[2018-09-16] MEDS: FENTANYL PF 100 MCG/2ML IV PRN ×3 (13:04→13:29)
[2018-09-16] MEDS: HYDROmorphone 1 MG/ML, 1ML IV PRN ×4 (13:09→13:33)
[2018-09-16] MEDS ORDERED: MEPERIDINE/PF 50 MG/ML ONE (13:35)
[2018-09-16 14:15] VITALS: BP 122/57
[2018-09-16] MEDS: [UNRECOGNIZED DRUG - REMARK] MC SCH ×2 (15:00→23:00)
[2018-09-16] MEDS: NS + 20MEQ KCL 1,000 ML IV SCH (15:06)
[2018-09-16] MEDS: CEFAZOLIN PMX 2GM/50ML 50 ML IVPB SCH (15:08)
[2018-09-16] MEDS: ASPIRIN 81 MG TABLET EC PO SCH (18:24)
[2018-09-16 18:55] VITALS: BP 108/41
[2018-09-16] MEDS ORDERED: POTASSIUM CHLORIDE 20 MEQ TAB.ER.PRT PO SCH (21:00)
[2018-09-16] MEDS: [UNRECOGNIZED DRUG - OTHER] PO SCH (21:00)
[2018-09-16] MEDS: MORPHINE SULFATE 40 MG PO SCH (21:00)
[2018-09-16] MEDS ORDERED: PRAMIPEXOLE 0.5MG TABLET PO SCH (21:00)
[2018-09-16] MEDS ORDERED: QUININE SULFATE PO SCH (21:00)
[2018-09-16] MEDS ORDERED: ATENOLOL 25 MG TABLET PO SCH (21:00)
[2018-09-16] MEDS: DOCUSATE 100 MG CAPSULE PO SCH (22:14)
[2018-09-16] MEDS: COLESEVELAM 625 MG TABLET PO SCH (22:14)
[2018-09-17] MEDS: CEFAZOLIN PMX 2GM/50ML 50 ML IVPB SCH (00:11)
[2018-09-17 01:06] VITALS: BP 105/67
[2018-09-17] MEDS: NS + 20MEQ KCL 1,000 ML IV SCH (03:47)
[2018-09-17] MEDS ORDERED: LEVOTHYROXINE 25 MCG TABLET ONE (05:34)
[2018-09-17] MEDS: HYDROcodone/APAP 5/325 TABLET PO PRN ×3 (05:47→14:00)
[2018-09-17] MEDS: ASPIRIN 81 MG TABLET EC PO SCH (05:47)
[2018-09-17] MEDS ORDERED: DEXAMETHASONE 4 MG/ML, 1ML IVPush SCH (06:00)
[2018-09-17] MEDS ORDERED: LEVOTHYROXINE 50 MCG TABLET PO SCH ×2 (06:00)
[2018-09-17] MEDS: DOCUSATE 100 MG CAPSULE PO SCH (07:41)
[2018-09-17] MEDS: COLESEVELAM 625 MG TABLET PO SCH (07:43)
[2018-09-17] MEDS ORDERED: MESALAMINE 400 MG CAPSULE.DR PO SCH (09:00)
[2018-09-17] MEDS ORDERED: TEMPLATE NON-FORMULARY MED. (Bupropion Hcl** (Bupropion Xl**) 300 MG) PO SCH (09:00)
[2018-09-17] MEDS ORDERED: TORSEMIDE 20 MG TABLET PO SCH (09:00)
[2018-09-17] MEDS: [UNRECOGNIZED DRUG - OTHER] PO SCH (09:00)
[2018-09-17] MEDS: MORPHINE SULFATE 40 MG PO SCH (09:00)
[2018-09-17] MEDS ORDERED: ATENOLOL 50 MG TABLET PO SCH (09:00)
[2018-09-17] MEDS ORDERED: FLUOXETINE HCL 20 MG CAPSULE PO SCH (09:00)
[2018-09-17 09:20] VITALS: BP 106/57
[2018-09-17] MEDS ORDERED: OXYC5TAB2 PO (12:00)
[2018-09-17] MEDS ORDERED: TRAM50TA2 PO (12:01)
[2018-09-17 13:00] VITALS: BP 100/51
== END 2018-09-17 14:30 | disposition home or self-care (01) | DRG 467 ==
LOC: ORIP 10:28 → 4NOR 14:16
PROVIDERS: ADMIT Orthopaedic Surgery; ATTEND Orthopaedic Surgery
PROC: 0SPR0JZ Removal of Synthetic Substitute from Right Hip Joint, Femoral Surface, Open Approach (ICD-10-PCS; 2018-09-16)
PROC: 0QP604Z Removal of Internal Fixation Device from Right Upper Femur, Open Approach (ICD-10-PCS; 2018-09-16)
PROC: 0SRR03Z Replacement of Right Hip Joint, Femoral Surface with Ceramic Synthetic Substitute, Open Approach (ICD-10-PCS; principal; 2018-09-16 12:30)
DX: T84.020A Dislocation of internal right hip prosthesis, initial encounter (principal); K50.90 Crohn's disease, unspecified, without complications; Y83.8 Other surgical procedures as the cause of abnormal reaction of the patient, or of later complication, without mention of misadventure at the time of the procedure; Y92.89 Other specified places as the place of occurrence of the external cause; M41.9 Scoliosis, unspecified; Z98.1 Arthrodesis status; R00.8 Other abnormalities of heart beat; M19.90 Unspecified osteoarthritis, unspecified site; Z86.711 Personal history of pulmonary embolism; Z88.6 Allergy status to analgesic agent; Z88.1 Allergy status to other antibiotic agents; Z88.0 Allergy status to penicillin; Z88.2 Allergy status to sulfonamides; Z79.899 Other long term (current) drug therapy
CPT/HCPCS: 36415; 80053; 83036; 85014; 85018; 85025; 85610; 85730; 87081; 93005; G0378; J0171; J0690; J1100; J1170; J1885; J2175; J2405; J2704; J2710; J2795; J3010; J3370; J3480; J3490; C1776; J0330; J7120

== ENCOUNTER 2018-09-21 21:38 | Inpatient (IN) | payer MEDICARE, OTHER ==
[~2018-09-21] VITALS: Ht 160 cm; Wt 69.1 kg
[~2018-09-21 21:38] MED LIST changes: -EPINEPHRINE 1 MG/ML, 1ML ONE; -KETOROLAC 60 MG/2 ML ONE; +OXYC5TAB2 PO; -ROPIvacaine/PF 0.5%, 20 ML ONE; -SODIUM CHLORIDE 0.9% 100 ML ONE; -TRANEXAMIC ACID 100 MG/ML, 10ML ONE; -VANCOMYCIN 1,000 MG ONE
[2018-09-21] MEDS ORDERED: MORPHINE SULFATE 4 MG/ML, 1ML IVPush PRN (22:00)
[2018-09-21] MEDS ORDERED: SODIUM CHLORIDE FLUSH 10ML SYR IVF ONE (22:00)
[2018-09-21] MEDS ORDERED: PROPOFOL 10 MG/ML, 20ML IVPush ONE (22:30)
[2018-09-21] MEDS ORDERED: PROPOFOL 10 MG/ML, 20ML ONE (22:41)
[2018-09-21] MEDS ORDERED: MORPHINE SULFATE 4 MG/ML, 1ML ONE (22:41)
[2018-09-21] MEDS ORDERED: BISACODYL 10 MG SUPP PR PRN (23:30)
[2018-09-21] MEDS: ATENOLOL 25 MG TABLET PO SCH (23:30)
[2018-09-21] MEDS ORDERED: RISEDRONATE SODIUM PO SCH (23:30)
[2018-09-21] MEDS: POTASSIUM CHLORIDE 20 MEQ TAB.ER.PRT PO SCH (23:30)
[2018-09-21] MEDS: MULTIVITS,STRESS FORMULA 1 TABLET PO SCH (23:30)
[2018-09-21] MEDS: [UNRECOGNIZED DRUG - OTHER] HOMEMEDPO SCH (23:30)
[2018-09-21] MEDS: MORPHINE SULFATE 40 MG HOMEMEDPO SCH (23:30)
[2018-09-21] MEDS ORDERED: ACETAMINOPHEN 325 MG TABLET PO PRN (23:30)
[2018-09-21] MEDS: COLESEVELAM 625 MG TABLET PO SCH (23:30)
[2018-09-21] MEDS: PRAMIPEXOLE 0.5MG TABLET PO SCH (23:30)
[2018-09-21] MEDS: MESALAMINE 400 MG CAPSULE.DR PO SCH (23:30)
[2018-09-21] MEDS ORDERED: POLYETHYLENE GLYCOL 17 GM PACKET PO PRN (23:30)
[2018-09-21] MEDS: CHOLECALCIFEROL 1,000 UNIT TABLET PO SCH (23:30)
[2018-09-21] MEDS: QUININE SULFATE HOMEMEDPO SCH (23:30)
[2018-09-21] MEDS ORDERED: TEMPLATE NON-FORMULARY MED. (Gluc 2KCL/Chondr/Coll Hy/Hy Ac** (Glucosamine & Chondroitin C PO SCH (23:30)
[2018-09-21] MEDS ORDERED: ONDANSETRON ODT 4 MG PO PRN (23:30)
[2018-09-21 23:32] VITALS: BP 119/59
[2018-09-21] MEDS ORDERED: IBANDRONATE MC SCH (23:45)
[2018-09-21] MEDS ORDERED: RISEDRONATE MC SCH (23:45)
[2018-09-21] MEDS ORDERED: LEVOTHYROXINE MC SCH (23:45)
[2018-09-21 23:59] LABS: MEAN CORPUSCULAR HEMOGLOBIN 30.9 pg (27.0-34.8); MEAN CORPUSCULAR HGB CONC 33.1 g/dL (32.4-35.8); MEAN CORPUSCULAR VOLUME 93.2 fL (80-100); MEAN PLATELET VOLUME 6.7 fL (7.4-10.4); PLATELET COUNT 217 x10^3/uL (130-400); RED BLOOD COUNT 3.13 x10^6/uL (3.82-5.3); RED CELL DISTRIBUTION WIDTH 22.4 % (9.6-15.2)
[2018-09-22 00:06] LABS: ALANINE AMINOTRANSFERASE 14 U/L (12-78); ALBUMIN 2.7 g/dL (3.4-5.0); ANION GAP 8 mmol/L (5-15); CHLORIDE 106 mmol/L (98-107); CREATININE 0.71 mg/dL (0.55-1.02)
[2018-09-22 00:08] LABS: ALKALINE PHOSPHATASE 87 U/L (45-117); BILIRUBIN,TOTAL 0.4 mg/dL (0.2-1.0)
[2018-09-22 00:30] LABS: BASOPHILS # (AUTO) 0.04 x10^3/uL (0-0.1); BASOPHILS % (AUTO) 1 % (0-1); EOSINOPHILS # (AUTO) 0.24 x10^3/uL (0-0.4); EOSINOPHILS % (AUTO) 7 % (1-7); LYMPHOCYTES # (AUTO) 0.53 x10^3/uL (1-3.4); LYMPHOCYTES % (AUTO) 15 % (22-44); MD SCAN; MONOCYTES # (AUTO) 0.28 x10^3/uL (0.2-0.8); MONOCYTES % (AUTO) 8 % (2-9); NEUTROPHILS # (AUTO) 2.41 x10^3/uL (1.8-6.8); NEUTROPHILS % (AUTO) 69 % (42-75)
[2018-09-22] MEDS: morphine SULFATE 10 MG/ML, 1ML IVPush PRN ×4 (01:47→12:38)
[2018-09-22 01:53] VITALS: BP 107/44
[2018-09-22] MEDS ORDERED: ALUMINUM/MAG/SIMETHICONE 30 ML UDC PO PRN (03:30)
[2018-09-22 04:50] LABS: BASOPHILS # (AUTO) 0.03 x10^3/uL (0-0.1); BASOPHILS % (AUTO) 1 % (0-1); EOSINOPHILS % (AUTO) 10 % (1-7); LYMPHOCYTES # (AUTO) 0.92 x10^3/uL (1-3.4); LYMPHOCYTES % (AUTO) 29 % (22-44); MD NO; MEAN CORPUSCULAR HEMOGLOBIN 30.6 pg (27.0-34.8); MEAN CORPUSCULAR VOLUME 92.8 fL (80-100); MONOCYTES # (AUTO) 0.34 x10^3/uL (0.2-0.8); MONOCYTES % (AUTO) 11 % (2-9); NEUTROPHILS # (AUTO) 1.52 x10^3/uL (1.8-6.8); NEUTROPHILS % (AUTO) 49 % (42-75); PLATELET COUNT 211 x10^3/uL (130-400); RED BLOOD COUNT 2.94 x10^6/uL (3.82-5.3)
[2018-09-22 05:01] LABS: ALBUMIN 2.5 g/dL (3.4-5.0); ANION GAP 5 mmol/L (5-15); CALCIUM 7.5 mg/dL (8.5-10.1); CHLORIDE 106 mmol/L (98-107)
[2018-09-22 05:06] LABS: ALANINE AMINOTRANSFERASE 14 U/L (12-78); ALKALINE PHOSPHATASE 78 U/L (45-117); BILIRUBIN,TOTAL 0.5 mg/dL (0.2-1.0); CREATININE 0.65 mg/dL (0.55-1.02); TOTAL PROTEIN 5.6 g/dL (6.4-8.2)
[2018-09-22] MEDS ORDERED: LEVOTHYROXINE 50 MCG TABLET PO SCH (06:00)
[2018-09-22 07:02] VITALS: BP 100/48
[2018-09-22] MEDS: MORPHINE SULFATE 40 MG HOMEMEDPO SCH ×2 (07:29→21:00)
[2018-09-22] MEDS: OMEPRAZOLE BICARB HOMEMEDPO SCH (07:29)
[2018-09-22] MEDS: MULTIVITAMIN 1 TABLET PO SCH (07:30)
[2018-09-22] MEDS: SENNA/DOCUSATE TABLET PO SCH (07:30)
[2018-09-22] MEDS: FLUOXETINE HCL 20 MG CAPSULE PO SCH (07:30)
[2018-09-22] MEDS: TORSEMIDE 20 MG TABLET PO SCH (07:30)
[2018-09-22] MEDS: [UNRECOGNIZED DRUG - OTHER] HOMEMEDPO SCH ×2 (07:30→21:00)
[2018-09-22] MEDS: MESALAMINE 400 MG CAPSULE.DR PO SCH ×3 (07:30→22:35)
[2018-09-22] MEDS: CETIRIZINE 10 MG TABLET PO SCH (07:31)
[2018-09-22] MEDS: CHOLECALCIFEROL 1,000 UNIT TABLET PO SCH ×2 (07:31→22:27)
[2018-09-22] MEDS: MULTIVITS,STRESS FORMULA 1 TABLET PO SCH ×2 (07:31→22:27)
[2018-09-22] MEDS: ATENOLOL 50 MG TABLET PO SCH (07:31)
[2018-09-22] MEDS: COLESEVELAM 625 MG TABLET PO SCH ×2 (07:31→22:27)
[2018-09-22] MEDS: BUPROPION SR 150 MG TABLET PO SCH ×2 (07:31→22:27)
[2018-09-22] MEDS ORDERED: IBANDRONATE 150 MG PO SCH (09:00)
[2018-09-22] MEDS: SODIUM CHLORIDE FLUSH 10ML SYR IVF SCH ×3 (09:21→22:28)
[2018-09-22] MEDS ORDERED: FENTANYL PF 100 MCG/2ML ONE ×3 (12:13→16:10)
[2018-09-22] MEDS ORDERED: MIDAZOLAM 1 MG/ML, 2ML ONE (12:13)
[2018-09-22 13:05] VITALS: BP 99/47
[2018-09-22] MEDS ORDERED: SUCCINYLCHOLINE 20 MG/ML, 10ML ONE (15:13)
[2018-09-22] MEDS ORDERED: PROPOFOL 10 MG/ML, 20ML ONE (15:13)
[2018-09-22] MEDS ORDERED: MEPERIDINE/PF 25MG/0.5ML IVPush PRN (15:30)
[2018-09-22] MEDS ORDERED: PROMETHAZINE 25 MG/ML, 1ML IV PRN (15:30)
[2018-09-22] MEDS ORDERED: KETOROLAC 30 MG/1 ML IV PRN (15:30)
[2018-09-22] MEDS ORDERED: OXYcodone 5 MG/5 ML ORAL.SOL UDC PO PRN (15:30)
[2018-09-22] MEDS ORDERED: ONDANSETRON 2MG/ML, 2ML IVPush PRN (15:30)
[2018-09-22] MEDS ORDERED: ALBUTEROL SULFATE 2.5 MG/3 ML NPPB PRN (15:30)
[2018-09-22] MEDS ORDERED: hydrALAzine 20 MG/ML, 1ML IV PRN (15:30)
[2018-09-22] MEDS ORDERED: LABETALOL 5MG/ML, 20ML IV PRN (15:30)
[2018-09-22] MEDS ORDERED: METOCLOPRAMIDE 5 MG/ML, 2ML IV PRN (15:30)
[2018-09-22] MEDS ORDERED: MORPHINE SULFATE 4 MG/ML, 1ML ONE (15:58)
[2018-09-22] MEDS: FENTANYL PF 100 MCG/2ML IV PRN ×3 (16:00→16:26)
[2018-09-22] MEDS ORDERED: HYDROmorphone 2 MG/ML, 1ML ONE (16:00)
[2018-09-22] MEDS: HYDROmorphone 1 MG/ML, 1ML IV PRN ×4 (16:02→16:24)
[2018-09-22] MEDS ORDERED: KETOROLAC 60 MG/2 ML ONE (16:28)
[2018-09-22 20:00] VITALS: BP 112/62
[2018-09-22] MEDS: QUININE SULFATE HOMEMEDPO SCH (21:00)
[2018-09-22] MEDS: ATENOLOL 25 MG TABLET PO SCH ×2 (21:00→22:27)
[2018-09-22] MEDS: PRAMIPEXOLE 0.5MG TABLET PO SCH (21:00)
[2018-09-22] MEDS: POTASSIUM CHLORIDE 20 MEQ TAB.ER.PRT PO SCH (22:27)
[2018-09-23 01:17] VITALS: BP 117/63
[2018-09-23] MEDS ORDERED: LEVOTHYROXINE 50 MCG TABLET PO SCH (03:43)
[2018-09-23 07:55] VITALS: BP 115/56
[2018-09-23] MEDS: MULTIVITAMIN 1 TABLET PO SCH (09:00)
[2018-09-23] MEDS: SENNA/DOCUSATE TABLET PO SCH (09:00)
[2018-09-23] MEDS: ATENOLOL 50 MG TABLET PO SCH ×2 (09:00→10:34)
[2018-09-23] MEDS: [UNRECOGNIZED DRUG - OTHER] HOMEMEDPO SCH ×2 (09:00→21:12)
[2018-09-23] MEDS: MORPHINE SULFATE 40 MG HOMEMEDPO SCH (09:00)
[2018-09-23] MEDS: COLESEVELAM 625 MG TABLET PO SCH ×2 (10:33→21:12)
[2018-09-23] MEDS: FLUOXETINE HCL 20 MG CAPSULE PO SCH (10:33)
[2018-09-23] MEDS: BUPROPION SR 150 MG TABLET PO SCH ×2 (10:33→21:10)
[2018-09-23] MEDS: CHOLECALCIFEROL 1,000 UNIT TABLET PO SCH ×2 (10:33→21:11)
[2018-09-23] MEDS: MULTIVITS,STRESS FORMULA 1 TABLET PO SCH ×2 (10:33→21:11)
[2018-09-23] MEDS: CETIRIZINE 10 MG TABLET PO SCH (10:34)
[2018-09-23] MEDS: TORSEMIDE 20 MG TABLET PO SCH (10:35)
[2018-09-23] MEDS: SODIUM CHLORIDE FLUSH 10ML SYR IVF SCH ×2 (10:36→21:12)
[2018-09-23 10:38] LABS: MEAN CORPUSCULAR HEMOGLOBIN 30.4 pg (27.0-34.8); MEAN CORPUSCULAR HGB CONC 32.8 g/dL (32.4-35.8); MEAN CORPUSCULAR VOLUME 92.8 fL (80-100); MEAN PLATELET VOLUME 6.4 fL (7.4-10.4); PLATELET COUNT 229 x10^3/uL (130-400); RED BLOOD COUNT 3.22 x10^6/uL (3.82-5.3); RED CELL DISTRIBUTION WIDTH 22.6 % (9.6-15.2)
[2018-09-23 10:48] LABS: ANION GAP 5 mmol/L (5-15); CALCIUM 8.1 mg/dL (8.5-10.1); CHLORIDE 107 mmol/L (98-107)
[2018-09-23 10:49] LABS: CREATININE 0.57 mg/dL (0.55-1.02)
[2018-09-23 10:58] LABS: BASOPHILS # (AUTO) 0.02 x10^3/uL (0-0.1); BASOPHILS % (AUTO) 0 % (0-1); EOSINOPHILS # (AUTO) 0.29 x10^3/uL (0-0.4); EOSINOPHILS % (AUTO) 6 % (1-7); LYMPHOCYTES # (AUTO) 0.28 x10^3/uL (1-3.4); LYMPHOCYTES % (AUTO) 6 % (22-44); MD SCAN; MONOCYTES # (AUTO) 0.22 x10^3/uL (0.2-0.8); MONOCYTES % (AUTO) 5 % (2-9); NEUTROPHILS # (AUTO) 3.76 x10^3/uL (1.8-6.8); NEUTROPHILS % (AUTO) 82 % (42-75)
[2018-09-23 14:15] VITALS: BP 110/67
[2018-09-23] MEDS ORDERED: MORPHINE SULFATE 20 MG HOMEMEDPO SCH ×2 (15:53→16:01)
[2018-09-23] MEDS: OMEPRAZOLE BICARB HOMEMEDPO SCH (16:15)
[2018-09-23] MEDS ORDERED: MORPHINE SULFATE 40 MG HOMEMEDPO SCH (16:30)
[2018-09-23 18:08] VITALS: BP 127/67
[2018-09-23] MEDS ORDERED: ONDANSETRON ODT 4 MG PO PRN (20:00)
[2018-09-23] MEDS ORDERED: POLYETHYLENE GLYCOL 17 GM PACKET PO PRN (20:00)
[2018-09-23] MEDS ORDERED: ALUMINUM/MAG/SIMETHICONE 30 ML UDC PO PRN (20:00)
[2018-09-23] MEDS ORDERED: ACETAMINOPHEN 325 MG TABLET PO PRN (20:00)
[2018-09-23] MEDS ORDERED: BISACODYL 10 MG SUPP PR PRN (20:00)
[2018-09-23] MEDS: MESALAMINE 400 MG CAPSULE.DR PO SCH (21:09)
[2018-09-23] MEDS: ATENOLOL 25 MG TABLET PO SCH (21:11)
[2018-09-23] MEDS: POTASSIUM CHLORIDE 20 MEQ TAB.ER.PRT PO SCH (21:11)
[2018-09-23] MEDS: QUININE SULFATE HOMEMEDPO SCH (21:12)
[2018-09-23] MEDS: PRAMIPEXOLE 0.5MG TABLET PO SCH (21:13)
[2018-09-23] MEDS: morphine SULFATE 10 MG/ML, 1ML IVPush PRN (21:33)
[2018-09-24 00:31] VITALS: BP 106/54
[2018-09-24] MEDS: MORPHINE SULFATE 40 MG HOMEMEDPO SCH ×2 (04:29→16:21)
[2018-09-24] MEDS: LEVOTHYROXINE 50 MCG TABLET PO SCH (06:06)
[2018-09-24 07:55] VITALS: BP 101/58
[2018-09-24] MEDS: OMEPRAZOLE BICARB HOMEMEDPO SCH (09:00)
[2018-09-24] MEDS: SODIUM CHLORIDE FLUSH 10ML SYR IVF SCH ×2 (09:00→20:26)
[2018-09-24] MEDS: ATENOLOL 50 MG TABLET PO SCH (09:00)
[2018-09-24] MEDS: MULTIVITS,STRESS FORMULA 1 TABLET PO SCH ×2 (09:00→20:25)
[2018-09-24] MEDS: [UNRECOGNIZED DRUG - OTHER] HOMEMEDPO SCH ×2 (09:00→20:27)
[2018-09-24] MEDS: CHOLECALCIFEROL 1,000 UNIT TABLET PO SCH ×2 (10:04→20:25)
[2018-09-24] MEDS: COLESEVELAM 625 MG TABLET PO SCH ×2 (10:04→20:25)
[2018-09-24] MEDS: MESALAMINE 400 MG CAPSULE.DR PO SCH ×2 (10:05→20:25)
[2018-09-24] MEDS: MULTIVITAMIN 1 TABLET PO SCH (10:05)
[2018-09-24] MEDS: SENNA/DOCUSATE TABLET PO SCH (10:05)
[2018-09-24] MEDS: BUPROPION SR 150 MG TABLET PO SCH ×2 (10:05→20:25)
[2018-09-24] MEDS: TORSEMIDE 20 MG TABLET PO SCH (10:05)
[2018-09-24] MEDS: FLUOXETINE HCL 20 MG CAPSULE PO SCH (10:05)
[2018-09-24] MEDS: CETIRIZINE 10 MG TABLET PO SCH (10:05)
[2018-09-24 13:04] VITALS: BP 105/60
[2018-09-24 18:54] VITALS: BP 116/63
[2018-09-24] MEDS: morphine SULFATE 10 MG/ML, 1ML IVPush PRN (20:24)
[2018-09-24] MEDS: QUININE SULFATE HOMEMEDPO SCH (20:26)
[2018-09-24] MEDS: POTASSIUM CHLORIDE 20 MEQ TAB.ER.PRT PO SCH (20:26)
[2018-09-24] MEDS: PRAMIPEXOLE 0.5MG TABLET PO SCH (20:26)
[2018-09-24] MEDS: ATENOLOL 25 MG TABLET PO SCH (20:26)
[2018-09-25 01:54] VITALS: BP 122/65
[2018-09-25] MEDS: MORPHINE SULFATE 40 MG HOMEMEDPO SCH ×2 (03:51→16:45)
[2018-09-25] MEDS: LEVOTHYROXINE 50 MCG TABLET PO SCH (05:39)
[2018-09-25 06:49] VITALS: BP 106/56
[2018-09-25] MEDS: [UNRECOGNIZED DRUG - OTHER] HOMEMEDPO SCH ×2 (09:00→22:04)
[2018-09-25] MEDS: SENNA/DOCUSATE TABLET PO SCH (09:00)
[2018-09-25] MEDS: BUPROPION SR 150 MG TABLET PO SCH ×2 (10:15→22:07)
[2018-09-25] MEDS: MESALAMINE 400 MG CAPSULE.DR PO SCH ×2 (10:16→22:24)
[2018-09-25] MEDS: TORSEMIDE 20 MG TABLET PO SCH (10:18)
[2018-09-25] MEDS: CHOLECALCIFEROL 1,000 UNIT TABLET PO SCH ×2 (10:18→22:07)
[2018-09-25] MEDS: FLUOXETINE HCL 20 MG CAPSULE PO SCH (10:18)
[2018-09-25] MEDS: CETIRIZINE 10 MG TABLET PO SCH (10:19)
[2018-09-25] MEDS: ATENOLOL 50 MG TABLET PO SCH (10:20)
[2018-09-25] MEDS: MULTIVITS,STRESS FORMULA 1 TABLET PO SCH ×2 (10:20→22:08)
[2018-09-25] MEDS: COLESEVELAM 625 MG TABLET PO SCH ×2 (10:21→22:08)
[2018-09-25] MEDS: MULTIVITAMIN 1 TABLET PO SCH (10:21)
[2018-09-25] MEDS: SODIUM CHLORIDE FLUSH 10ML SYR IVF SCH ×2 (10:22→22:06)
[2018-09-25] MEDS: OMEPRAZOLE BICARB HOMEMEDPO SCH (10:22)
[2018-09-25 12:30] VITALS: BP 100/59
[2018-09-25 20:47] VITALS: BP 101/58
[2018-09-25] MEDS: QUININE SULFATE HOMEMEDPO SCH (22:03)
[2018-09-25] MEDS: ATENOLOL 25 MG TABLET PO SCH (22:07)
[2018-09-25] MEDS: PRAMIPEXOLE 0.5MG TABLET PO SCH (22:08)
[2018-09-25] MEDS: POTASSIUM CHLORIDE 20 MEQ TAB.ER.PRT PO SCH (22:08)
[2018-09-26 02:45] VITALS: BP 105/48
[2018-09-26] MEDS: MORPHINE SULFATE 40 MG HOMEMEDPO SCH (04:14)
[2018-09-26] MEDS: LEVOTHYROXINE 50 MCG TABLET PO SCH (05:57)
[2018-09-26] MEDS: morphine SULFATE 10 MG/ML, 1ML IVPush PRN (05:58)
[2018-09-26 07:54] VITALS: BP 107/50
[2018-09-26] MEDS: [UNRECOGNIZED DRUG - OTHER] HOMEMEDPO SCH (09:00)
[2018-09-26] MEDS: MESALAMINE 400 MG CAPSULE.DR PO SCH (09:26)
[2018-09-26] MEDS: FLUOXETINE HCL 20 MG CAPSULE PO SCH (09:27)
[2018-09-26] MEDS: TORSEMIDE 20 MG TABLET PO SCH (09:27)
[2018-09-26] MEDS: CETIRIZINE 10 MG TABLET PO SCH (09:27)
[2018-09-26] MEDS: SENNA/DOCUSATE TABLET PO SCH (09:27)
[2018-09-26] MEDS: MULTIVITS,STRESS FORMULA 1 TABLET PO SCH (09:27)
[2018-09-26] MEDS: CHOLECALCIFEROL 1,000 UNIT TABLET PO SCH (09:28)
[2018-09-26] MEDS: ATENOLOL 50 MG TABLET PO SCH (09:28)
[2018-09-26] MEDS: MULTIVITAMIN 1 TABLET PO SCH (09:28)
[2018-09-26] MEDS: COLESEVELAM 625 MG TABLET PO SCH (09:28)
[2018-09-26] MEDS: BUPROPION SR 150 MG TABLET PO SCH (09:28)
[2018-09-26] MEDS: OMEPRAZOLE BICARB HOMEMEDPO SCH (09:29)
[2018-09-26] MEDS: SODIUM CHLORIDE FLUSH 10ML SYR IVF SCH (09:33)
[2018-09-26 12:53] VITALS: BP 104/56
== END 2018-09-26 16:15 | disposition home health service (06) | DRG 559 ==
LOC: ED 22:09 → EDIP 22:58 → 3NW 23:36 → 4EST 09-22 17:37 → UNDODISIN 09-23 17:04 → 4NOR 09-23 18:00 → DCLOUNGE 09-26 16:04
PROVIDERS: ADMIT Hospitalist; ATTEND Hospitalist
PROC: 0SS9XZZ Reposition Right Hip Joint, External Approach (ICD-10-PCS; principal; 2018-09-22 16:15)
DX: T84.020A Dislocation of internal right hip prosthesis, initial encounter (principal); S72.331A Displaced oblique fracture of shaft of right femur, initial encounter for closed fracture; F11.20 Opioid dependence, uncomplicated; I47.1 Supraventricular tachycardia; K50.90 Crohn's disease, unspecified, without complications; I10 Essential (primary) hypertension; E03.9 Hypothyroidism, unspecified; F32.9 Major depressive disorder, single episode, unspecified; Z96.651 Presence of right artificial knee joint; M19.90 Unspecified osteoarthritis, unspecified site; G89.29 Other chronic pain; K21.9 Gastro-esophageal reflux disease without esophagitis; W01.0XXA Fall on same level from slipping, tripping and stumbling without subsequent striking against object, initial encounter; Y79.2 Prosthetic and other implants, materials and accessory orthopedic devices associated with adverse incidents; X50.1XXA Overexertion from prolonged static or awkward postures, initial encounter; Z87.891 Personal history of nicotine dependence; Z90.49 Acquired absence of other specified parts of digestive tract; Z79.899 Other long term (current) drug therapy; Z88.8 Allergy status to other drugs, medicaments and biological substances; Z88.0 Allergy status to penicillin; Z88.5 Allergy status to narcotic agent; Z88.1 Allergy status to other antibiotic agents
CPT/HCPCS: 36415; 76000; 80048; 80053; 83735; 84100; 85025; 96374; G0378; J1170; J2250; J2704; J3010; Q0162; J0330; J2270

== ENCOUNTER 2018-09-29 10:58 | Inpatient (IN) | payer MEDICARE, OTHER ==
[~2018-09-29] VITALS: Ht 157.5 cm; Wt 72.1 kg
[2018-09-29] MEDS ORDERED: SODIUM CHLORIDE FLUSH 10ML SYR IVF ONE (11:30)
[2018-09-29] MEDS ORDERED: PROPOFOL 10 MG/ML, 20ML ONE (12:42)
[2018-09-29] MEDS ORDERED: SODIUM CHLORIDE FLUSH 10ML SYR IVF PRN (13:30)
[2018-09-29] MEDS ORDERED: PROPOFOL 10 MG/ML, 20ML IVPush ONE (13:30)
[2018-09-29 13:35] LABS: MEAN CORPUSCULAR HEMOGLOBIN 31.1 pg (27.0-34.8); MEAN CORPUSCULAR HGB CONC 33.3 g/dL (32.4-35.8); MEAN CORPUSCULAR VOLUME 93.3 fL (80-100); MEAN PLATELET VOLUME 6.8 fL (7.4-10.4); PLATELET COUNT 240 x10^3/uL (130-400); RED BLOOD COUNT 3.16 x10^6/uL (3.82-5.3); RED CELL DISTRIBUTION WIDTH 21.9 % (9.6-15.2)
[2018-09-29 13:40] LABS: ALBUMIN 2.6 g/dL (3.4-5.0); ANION GAP 5 mmol/L (5-15); CALCIUM 8.4 mg/dL (8.5-10.1); CHLORIDE 109 mmol/L (98-107); CREATININE 0.64 mg/dL (0.55-1.02); INTERNATIONAL NORMALIZED RATIO 1.15 (0.93-1.1); PROTHROMBIN TIME 11.9 Seconds (9.6-11.5)
[2018-09-29 14:17] LABS: BASOPHILS # (AUTO) 0.01 x10^3/uL (0-0.1); BASOPHILS % (AUTO) 0 % (0-1); EOSINOPHILS # (AUTO) 0.16 x10^3/uL (0-0.4); EOSINOPHILS % (AUTO) 5 % (1-7); LYMPHOCYTES % (AUTO) 12 % (22-44); MD SCAN; MONOCYTES # (AUTO) 0.24 x10^3/uL (0.2-0.8); MONOCYTES % (AUTO) 7 % (2-9); NEUTROPHILS # (AUTO) 2.55 x10^3/uL (1.8-6.8); NEUTROPHILS % (AUTO) 76 % (42-75)
[2018-09-29] MEDS ORDERED: MORPHINE SULFATE 4 MG/ML, 1ML ONE ×2 (14:25→14:31)
[2018-09-29] MEDS ORDERED: hydrALAzine 20 MG/ML, 1ML IVPush PRN (14:30)
[2018-09-29] MEDS ORDERED: LABETALOL 5MG/ML, 20ML IVPush PRN (14:30)
[2018-09-29] MEDS ORDERED: ACETAMINOPHEN 325 MG TABLET PO PRN (14:30)
[2018-09-29] MEDS ORDERED: METHOCARBAMOL 500 MG TABLET PO PRN (14:30)
[2018-09-29] MEDS ORDERED: POLYETHYLENE GLYCOL 17 GM PACKET PO PRN (14:30)
[2018-09-29] MEDS ORDERED: ONDANSETRON 2MG/ML, 2ML IVPush PRN (14:30)
[2018-09-29] MEDS ORDERED: DOCUSATE 100 MG CAPSULE PO PRN (14:30)
[2018-09-29] MEDS ORDERED: ONDANSETRON ODT 4 MG PO PRN (14:30)
[2018-09-29] MEDS: morphine SULFATE 10 MG/ML, 1ML IVPush PRN ×2 (14:33→23:32)
[2018-09-29 15:16] VITALS: BP 118/53
[2018-09-29 19:28] VITALS: BP 95/54
[2018-09-29] MEDS ORDERED: RISEDRONATE 35 MG PO SCH (22:00)
[2018-09-30 00:31] VITALS: BP 148/66
[2018-09-30] MEDS: SODIUM CHLORIDE 0.9% 1,000 ML IV SCH ×2 (02:28→22:20)
[2018-09-30] MEDS: morphine SULFATE 10 MG/ML, 1ML IVPush PRN ×2 (02:29→17:20)
[2018-09-30] MEDS: LEVOTHYROXINE 50 MCG TABLET PO SCH (04:48)
[2018-09-30] MEDS: ATENOLOL 50 MG TABLET PO SCH ×2 (04:48→11:34)
[2018-09-30 05:21] LABS: BASOPHILS # (AUTO) 0.03 x10^3/uL (0-0.1); BASOPHILS % (AUTO) 1 % (0-1); EOSINOPHILS % (AUTO) 6 % (1-7); LYMPHOCYTES # (AUTO) 0.57 x10^3/uL (1-3.4); LYMPHOCYTES % (AUTO) 17 % (22-44); MD NO; MEAN CORPUSCULAR HEMOGLOBIN 31.5 pg (27.0-34.8); MEAN CORPUSCULAR HGB CONC 33.3 g/dL (32.4-35.8); MEAN CORPUSCULAR VOLUME 94.5 fL (80-100); MEAN PLATELET VOLUME 7.1 fL (7.4-10.4); MONOCYTES # (AUTO) 0.36 x10^3/uL (0.2-0.8); MONOCYTES % (AUTO) 10 % (2-9); NEUTROPHILS # (AUTO) 2.28 x10^3/uL (1.8-6.8); NEUTROPHILS % (AUTO) 66 % (42-75); PLATELET COUNT 236 x10^3/uL (130-400); RED BLOOD COUNT 3.15 x10^6/uL (3.82-5.3); RED CELL DISTRIBUTION WIDTH 21.4 % (9.6-15.2)
[2018-09-30 05:27] LABS: CHLORIDE 110 mmol/L (98-107)
[2018-09-30 05:31] LABS: ANION GAP 7 mmol/L (5-15); CALCIUM 8.3 mg/dL (8.5-10.1); CREATININE 0.53 mg/dL (0.55-1.02)
[2018-09-30 07:42] VITALS: BP 134/65
[2018-09-30] MEDS: SENNA/DOCUSATE TABLET PO SCH (09:00)
[2018-09-30] MEDS: FLUOXETINE 10 MG CAP PO SCH (09:00)
[2018-09-30] MEDS: COLESEVELAM 625 MG TABLET PO SCH (09:00)
[2018-09-30] MEDS ORDERED: [UNRECOGNIZED DRUG - OTHER] PO SCH (09:00)
[2018-09-30] MEDS ORDERED: SODIUM BICARBONATE PO SCH (09:00)
[2018-09-30] MEDS ORDERED: TEMPLATE NON-FORMULARY MED. (Vitamin B Complex & Vit C No.4 (Super B Complex) 1 TAB) PO SCH (09:00)
[2018-09-30] MEDS ORDERED: OMEPRAZOLE PO SCH (09:00)
[2018-09-30] MEDS: MULTIVITAMIN 1 TABLET PO SCH (09:00)
[2018-09-30] MEDS ORDERED: BUPROPION SR 150 MG TABLET PO SCH (09:00)
[2018-09-30] MEDS: CHOLECALCIFEROL 1,000 UNIT TABLET PO SCH ×2 (09:00→22:21)
[2018-09-30] MEDS: BUPROPION SR 150 MG TABLET PO SCH (09:00)
[2018-09-30] MEDS: TORSEMIDE 20 MG TABLET PO SCH (09:00)
[2018-09-30] MEDS ORDERED: [UNRECOGNIZED DRUG - OTHER] PO SCH (09:00)
[2018-09-30] MEDS: CETIRIZINE 10 MG TABLET PO SCH (09:00)
[2018-09-30] MEDS ORDERED: FENTANYL PF 100 MCG/2ML ONE (11:42)
[2018-09-30] MEDS ORDERED: MIDAZOLAM 1 MG/ML, 2ML ONE (11:42)
[2018-09-30] MEDS ORDERED: SUCCINYLCHOLINE 20 MG/ML, 10ML ONE (11:43)
[2018-09-30] MEDS ORDERED: PROPOFOL 10 MG/ML, 20ML ONE (11:43)
[2018-09-30] MEDS ORDERED: ROCURONIUM 10MG/ML,5ML ONE (11:44)
[2018-09-30] MEDS ORDERED: ONDANSETRON 2MG/ML, 2ML ONE (11:44)
[2018-09-30] MEDS ORDERED: CEFAZOLIN 1,000 MG ONE ×2 (11:44)
[2018-09-30] MEDS ORDERED: LORazepam 2 MG/ML, 1ML IVPush PRN (12:00)
[2018-09-30] MEDS ORDERED: METOCLOPRAMIDE 5 MG/ML, 2ML IV PRN (12:00)
[2018-09-30] MEDS ORDERED: SCOPOLAMINE PATCH, 1.5MG PATCH.TD72 TD PRN (12:00)
[2018-09-30] MEDS ORDERED: DIAZEPAM 5 MG/ML, 2ML IVPush PRN (12:00)
[2018-09-30] MEDS ORDERED: FENTANYL PF 100 MCG/2ML IV PRN (12:00)
[2018-09-30] MEDS ORDERED: MIDAZOLAM 1 MG/ML, 2ML IV PRN (12:00)
[2018-09-30] MEDS ORDERED: ALBUTEROL/IPRATROPIUM 2.5MG/0.5MG, 3 ML NPPB PRN (12:00)
[2018-09-30] MEDS ORDERED: MEPERIDINE/PF 25MG/0.5ML IVPush PRN (12:00)
[2018-09-30] MEDS ORDERED: METOPROLOL 1 MG/ML, 5ML IV PRN (12:00)
[2018-09-30] MEDS ORDERED: MORPHINE SULFATE 4 MG/ML, 1ML IVPush PRN (12:00)
[2018-09-30] MEDS ORDERED: LABETALOL 5MG/ML, 20ML IV PRN (12:00)
[2018-09-30] MEDS ORDERED: hydrALAzine 20 MG/ML, 1ML IV PRN (12:00)
[2018-09-30] MEDS ORDERED: VANCOMYCIN PER PHARMACY MC ONE (12:02)
[2018-09-30] MEDS ORDERED: EPINEPHRINE 1 MG/ML, 1ML ONE (12:22)
[2018-09-30] MEDS ORDERED: ROPIvacaine/PF 0.2%, 20 ML ONE ×2 (12:22→12:36)
[2018-09-30] MEDS ORDERED: TRANEXAMIC ACID 100 MG/ML, 10ML ONE ×2 (12:22→17:34)
[2018-09-30] MEDS ORDERED: VANCOMYCIN 1,000 MG ONE ×2 (12:22→15:19)
[2018-09-30] MEDS ORDERED: KETOROLAC 60 MG/2 ML ONE (12:22)
[2018-09-30] MEDS ORDERED: SODIUM CHLORIDE 0.9% 100 ML ONE (12:22)
[2018-09-30] MEDS ORDERED: VANCOMYCIN 1,300 MG in SODIUM CHLORIDE 0.9% 250 ML IV ONE (12:30)
[2018-09-30] MEDS ORDERED: ROPivacaine/PF 0.2%, 10 ML ONE (12:35)
[2018-09-30] MEDS ORDERED: ROPIvacaine/PF 0.5%, 30 ML ONE ×2 (12:37→15:19)
[2018-09-30] MEDS: HYDROmorphone 1 MG/ML, 1ML IV PRN ×8 (14:48→15:48)
[2018-09-30] MEDS ORDERED: HYDROmorphone 2 MG/ML, 1ML ONE ×2 (14:51→15:11)
[2018-09-30] MEDS ORDERED: HYDROcodone/APAP 7.5-325MG/15ML UDC ONE (14:58)
[2018-09-30] MEDS: CEFAZOLIN 2,000 MG in SODIUM CHLORIDE 0.9% 50 ML IVPB SCH (15:30)
[2018-09-30] MEDS ORDERED: HYDROcodone/APAP 7.5-325MG/15ML UDC PO PRN (15:30)
[2018-09-30] MEDS ORDERED: PHENYLEPHRINE 10 MG/ML ONE (16:08)
[2018-09-30] MEDS ORDERED: EPHEDRINE 50 MG/ML, 1ML ONE (16:08)
[2018-09-30] MEDS: MUPIROCIN OINT 2%, 22GM TP SCH (17:22)
[2018-09-30 18:41] VITALS: BP 101/51
[2018-09-30 18:49] LABS: MEAN CORPUSCULAR HEMOGLOBIN 31.1 pg (27.0-34.8); MEAN CORPUSCULAR HGB CONC 32.5 g/dL (32.4-35.8); MEAN CORPUSCULAR VOLUME 95.6 fL (80-100); MEAN PLATELET VOLUME 7.4 fL (7.4-10.4); PLATELET COUNT 260 x10^3/uL (130-400); RED BLOOD COUNT 2.92 x10^6/uL (3.82-5.3); RED CELL DISTRIBUTION WIDTH 21.7 % (9.6-15.2)
[2018-09-30 18:54] LABS: HEMOGRAM NOTE RECHECKED
[2018-09-30] MEDS: QUININE SULFATE PO SCH (21:00)
[2018-09-30] MEDS ORDERED: PRAMIPEXOLE 0.5MG TABLET PO SCH (21:00)
[2018-09-30] MEDS ORDERED: POTASSIUM CHLORIDE 20 MEQ TAB.ER.PRT PO SCH (21:00)
[2018-09-30] MEDS ORDERED: ATENOLOL 25 MG TABLET PO SCH (21:00)
[2018-09-30] MEDS ORDERED: POTASSIUM CHLORIDE 20 MEQ PO SCH (21:00)
[2018-09-30] MEDS: PRAMIPEXOLE 0.25MG TABLET PO SCH (22:22)
[2018-09-30] MEDS: ASPIRIN 81 MG TABLET CHEW PO SCH (22:24)
[2018-09-30 23:18] VITALS: BP 106/43
[2018-10-01] MEDS: MESALAMINE 400 MG CAPSULE.DR PO SCH ×3 (00:03→20:47)
[2018-10-01] MEDS: CEFAZOLIN 2,000 MG in SODIUM CHLORIDE 0.9% 50 ML IVPB SCH (00:03)
[2018-10-01] MEDS: COLESEVELAM 625 MG TABLET PO SCH ×3 (00:04→20:45)
[2018-10-01 04:16] VITALS: BP 100/44
[2018-10-01] MEDS: SODIUM CHLORIDE 0.9% 1,000 ML IV SCH (04:48)
[2018-10-01] MEDS: MUPIROCIN OINT 2%, 22GM TP SCH ×2 (06:00→17:12)
[2018-10-01] MEDS: LEVOTHYROXINE 50 MCG TABLET PO SCH (06:08)
[2018-10-01 07:56] VITALS: BP 108/40
[2018-10-01] MEDS ORDERED: CEFAZOLIN PMX 2GM/50ML 50 ML IVPB SCH (08:00)
[2018-10-01] MEDS: SENNA/DOCUSATE TABLET PO SCH (08:25)
[2018-10-01] MEDS: FLUOXETINE 10 MG CAP PO SCH (08:26)
[2018-10-01] MEDS: CETIRIZINE 10 MG TABLET PO SCH (08:26)
[2018-10-01] MEDS: BUPROPION SR 150 MG TABLET PO SCH (08:26)
[2018-10-01] MEDS: CHOLECALCIFEROL 1,000 UNIT TABLET PO SCH ×3 (08:26→20:44)
[2018-10-01] MEDS: MULTIVITAMIN 1 TABLET PO SCH (08:27)
[2018-10-01] MEDS: ASPIRIN 81 MG TABLET CHEW PO SCH ×2 (08:27→20:44)
[2018-10-01] MEDS: TORSEMIDE 20 MG TABLET PO SCH (08:28)
[2018-10-01] MEDS: SODIUM BICARBONATE PO SCH (08:30)
[2018-10-01] MEDS: OMEPRAZOLE PO SCH (08:30)
[2018-10-01] MEDS ORDERED: ATENOLOL 50 MG TABLET PO SCH (09:00)
[2018-10-01] MEDS ORDERED: MESALAMINE 400 MG CAPSULE.DR PO SCH (09:00)
[2018-10-01 13:00] VITALS: BP 109/44
[2018-10-01] MEDS: HYDROcodone/APAP 7.5-325MG/15ML UDC PO PRN ×2 (13:14)
[2018-10-01 17:07] VITALS: BP 97/45
[2018-10-01 19:59] VITALS: BP 106/48
[2018-10-01] MEDS: PRAMIPEXOLE 0.25MG TABLET PO SCH (20:45)
[2018-10-01] MEDS: [UNRECOGNIZED DRUG - OTHER] HOMEMEDPO SCH (20:48)
[2018-10-01] MEDS: MORPHINE HOMEMEDPO SCH (20:48)
[2018-10-01] MEDS: QUININE SULFATE PO SCH (20:53)
[2018-10-01] MEDS ORDERED: TEMPLATE NON-FORMULARY MED. (Gluc 2KCL/Chondr/Coll Hy/Hy Ac** (Glucosamine & Chondroitin C PO SCH (21:00)
[2018-10-01] MEDS ORDERED: MORPHINE SULFATE 40 MG PO SCH (21:00)
[2018-10-02] VITALS (9 sets, daily range): BP systolic 95–115; BP diastolic 41–47
[2018-10-02 05:02] LABS: ANION GAP 4 mmol/L (5-15); CALCIUM 7.3 mg/dL (8.5-10.1); CHLORIDE 111 mmol/L (98-107); CREATININE 0.57 mg/dL (0.55-1.02)
[2018-10-02 05:28] LABS: MEAN CORPUSCULAR HEMOGLOBIN 31.4 pg (27.0-34.8); MEAN CORPUSCULAR HGB CONC 33.5 g/dL (32.4-35.8); MEAN CORPUSCULAR VOLUME 93.9 fL (80-100); MEAN PLATELET VOLUME 6.8 fL (7.4-10.4); PLATELET COUNT 190 x10^3/uL (130-400); RED BLOOD COUNT 2.06 x10^6/uL (3.82-5.3)
[2018-10-02] MEDS ORDERED: LEVOTHYROXINE 50 MCG TABLET PO SCH (06:00)
[2018-10-02] MEDS: MUPIROCIN OINT 2%, 22GM TP SCH ×3 (06:00→17:46)
[2018-10-02] MEDS: LEVOTHYROXINE 50 MCG TABLET PO SCH (06:27)
[2018-10-02 06:28] LABS: BASOPHILS # (AUTO) 0.01 x10^3/uL (0-0.1); BASOPHILS % (AUTO) 0 % (0-1); EOSINOPHILS % (AUTO) 8 % (1-7); LYMPHOCYTES # (AUTO) 0.52 x10^3/uL (1-3.4); LYMPHOCYTES % (AUTO) 14 % (22-44); MD SCAN; MONOCYTES # (AUTO) 0.43 x10^3/uL (0.2-0.8); MONOCYTES % (AUTO) 12 % (2-9); NEUTROPHILS # (AUTO) 2.44 x10^3/uL (1.8-6.8); NEUTROPHILS % (AUTO) 66 % (42-75)
[2018-10-02] MEDS ORDERED: FLUOXETINE 10 MG CAP PO SCH (09:00)
[2018-10-02] MEDS: CETIRIZINE 10 MG TABLET PO SCH (09:20)
[2018-10-02] MEDS: MULTIVITAMIN 1 TABLET PO SCH (09:20)
[2018-10-02] MEDS: SENNA/DOCUSATE TABLET PO SCH (09:20)
[2018-10-02] MEDS: MESALAMINE 400 MG CAPSULE.DR PO SCH ×2 (09:20→20:44)
[2018-10-02] MEDS: COLESEVELAM 625 MG TABLET PO SCH ×2 (09:20→20:43)
[2018-10-02] MEDS: [UNRECOGNIZED DRUG - OTHER] HOMEMEDPO SCH ×2 (09:21→20:40)
[2018-10-02] MEDS: FLUOXETINE 10 MG CAP PO SCH (09:21)
[2018-10-02] MEDS: ASPIRIN 81 MG TABLET CHEW PO SCH ×2 (09:21→20:41)
[2018-10-02] MEDS: SODIUM BICARBONATE PO SCH (09:21)
[2018-10-02] MEDS: CHOLECALCIFEROL 1,000 UNIT TABLET PO SCH ×4 (09:21→20:47)
[2018-10-02] MEDS: MORPHINE HOMEMEDPO SCH ×2 (09:21→20:40)
[2018-10-02] MEDS: OMEPRAZOLE PO SCH (09:21)
[2018-10-02] MEDS: SODIUM CHLORIDE 0.9% 1,000 ML IV SCH (17:06)
[2018-10-02] MEDS: PRAMIPEXOLE 0.25MG TABLET PO SCH (20:42)
[2018-10-02] MEDS: QUININE SULFATE PO SCH (20:47)
[2018-10-03] VITALS (8 sets, daily range): BP systolic 96–127; BP diastolic 42–59
[2018-10-03] MEDS: MUPIROCIN OINT 2%, 22GM TP SCH ×2 (05:33→18:43)
[2018-10-03] MEDS: LEVOTHYROXINE 50 MCG TABLET PO SCH (05:33)
[2018-10-03 07:42] LABS: MEAN CORPUSCULAR HEMOGLOBIN 31.2 pg (27.0-34.8); MEAN CORPUSCULAR HGB CONC 33.1 g/dL (32.4-35.8); MEAN CORPUSCULAR VOLUME 94.3 fL (80-100); MEAN PLATELET VOLUME 6.8 fL (7.4-10.4); PLATELET COUNT 215 x10^3/uL (130-400); RED BLOOD COUNT 2.23 x10^6/uL (3.82-5.3); RED CELL DISTRIBUTION WIDTH 19.9 % (9.6-15.2)
[2018-10-03 07:46] LABS: ANION GAP 4 mmol/L (5-15); CALCIUM 7.2 mg/dL (8.5-10.1); CHLORIDE 112 mmol/L (98-107); CREATININE 0.45 mg/dL (0.55-1.02)
[2018-10-03 08:29] LABS: BASOPHILS # (AUTO) 0.01 x10^3/uL (0-0.1); BASOPHILS % (AUTO) 0 % (0-1); EOSINOPHILS # (AUTO) 0.34 x10^3/uL (0-0.4); EOSINOPHILS % (AUTO) 11 % (1-7); LYMPHOCYTES # (AUTO) 0.54 x10^3/uL (1-3.4); LYMPHOCYTES % (AUTO) 17 % (22-44); MD SCAN; MONOCYTES # (AUTO) 0.35 x10^3/uL (0.2-0.8); MONOCYTES % (AUTO) 11 % (2-9); NEUTROPHILS # (AUTO) 1.97 x10^3/uL (1.8-6.8); NEUTROPHILS % (AUTO) 62 % (42-75)
[2018-10-03] MEDS: CHOLECALCIFEROL 1,000 UNIT TABLET PO SCH ×4 (09:07→21:44)
[2018-10-03] MEDS: MULTIVITAMIN 1 TABLET PO SCH (09:07)
[2018-10-03] MEDS: ASPIRIN 81 MG TABLET CHEW PO SCH ×2 (09:07→21:44)
[2018-10-03] MEDS: FLUOXETINE 10 MG CAP PO SCH (09:07)
[2018-10-03] MEDS: SENNA/DOCUSATE TABLET PO SCH (09:07)
[2018-10-03] MEDS: CETIRIZINE 10 MG TABLET PO SCH (09:07)
[2018-10-03] MEDS: COLESEVELAM 625 MG TABLET PO SCH ×2 (09:07→21:44)
[2018-10-03] MEDS: MESALAMINE 400 MG CAPSULE.DR PO SCH ×2 (09:08→21:43)
[2018-10-03] MEDS: OMEPRAZOLE PO SCH (09:13)
[2018-10-03] MEDS: SODIUM BICARBONATE PO SCH (09:13)
[2018-10-03] MEDS: [UNRECOGNIZED DRUG - OTHER] HOMEMEDPO SCH ×2 (10:04→21:42)
[2018-10-03] MEDS: MORPHINE HOMEMEDPO SCH ×2 (10:04→21:42)
[2018-10-03] MEDS: SODIUM CHLORIDE 0.9% 1,000 ML IV SCH (12:02)
[2018-10-03] MEDS: QUININE SULFATE PO SCH (21:00)
[2018-10-03] MEDS: PRAMIPEXOLE 0.25MG TABLET PO SCH (21:44)
[2018-10-04 01:25] VITALS: BP 113/48
[2018-10-04] MEDS: MUPIROCIN OINT 2%, 22GM TP SCH ×2 (06:00→17:48)
[2018-10-04] MEDS: LEVOTHYROXINE 50 MCG TABLET PO SCH (06:00)
[2018-10-04 08:00] VITALS: BP 105/61
[2018-10-04] MEDS: MORPHINE HOMEMEDPO SCH ×2 (09:00→21:36)
[2018-10-04] MEDS: [UNRECOGNIZED DRUG - OTHER] HOMEMEDPO SCH ×2 (09:00→21:36)
[2018-10-04] MEDS: SODIUM BICARBONATE PO SCH (09:00)
[2018-10-04] MEDS: OMEPRAZOLE PO SCH (09:00)
[2018-10-04] MEDS: SENNA/DOCUSATE TABLET PO SCH (09:00)
[2018-10-04 09:16] LABS: BASOPHILS # (AUTO) 0.01 x10^3/uL (0-0.1); BASOPHILS % (AUTO) 0 % (0-1); EOSINOPHILS # (AUTO) 0.35 x10^3/uL (0-0.4); EOSINOPHILS % (AUTO) 10 % (1-7); LYMPHOCYTES % (AUTO) 14 % (22-44); MD NO; MEAN CORPUSCULAR HEMOGLOBIN 31.8 pg (27.0-34.8); MEAN CORPUSCULAR HGB CONC 33.7 g/dL (32.4-35.8); MEAN CORPUSCULAR VOLUME 94.2 fL (80-100); MEAN PLATELET VOLUME 6.8 fL (7.4-10.4); MONOCYTES # (AUTO) 0.22 x10^3/uL (0.2-0.8); MONOCYTES % (AUTO) 6 % (2-9); NEUTROPHILS # (AUTO) 2.45 x10^3/uL (1.8-6.8); NEUTROPHILS % (AUTO) 69 % (42-75); PLATELET COUNT 261 x10^3/uL (130-400); RED BLOOD COUNT 2.95 x10^6/uL (3.82-5.3)
[2018-10-04 09:26] LABS: ANION GAP 5 mmol/L (5-15); CALCIUM 7.8 mg/dL (8.5-10.1); CHLORIDE 109 mmol/L (98-107); CREATININE 0.48 mg/dL (0.55-1.02)
[2018-10-04] MEDS: COLESEVELAM 625 MG TABLET PO SCH ×2 (09:30→21:34)
[2018-10-04] MEDS: MULTIVITAMIN 1 TABLET PO SCH (09:30)
[2018-10-04] MEDS: CETIRIZINE 10 MG TABLET PO SCH (09:30)
[2018-10-04] MEDS: FLUOXETINE 10 MG CAP PO SCH (09:30)
[2018-10-04] MEDS: ASPIRIN 81 MG TABLET CHEW PO SCH ×2 (09:30→21:36)
[2018-10-04] MEDS: CHOLECALCIFEROL 1,000 UNIT TABLET PO SCH ×2 (09:30→21:34)
[2018-10-04] MEDS: MESALAMINE 400 MG CAPSULE.DR PO SCH ×2 (09:31→21:35)
[2018-10-04 13:27] VITALS: BP 110/46
[2018-10-04 19:44] VITALS: BP 124/50
[2018-10-04] MEDS: PRAMIPEXOLE 0.25MG TABLET PO SCH (21:34)
[2018-10-04] MEDS: QUININE SULFATE PO SCH (21:36)
[2018-10-05 01:30] VITALS: BP 114/52
[2018-10-05] MEDS: MUPIROCIN OINT 2%, 22GM TP SCH (05:03)
[2018-10-05] MEDS: LEVOTHYROXINE 50 MCG TABLET PO SCH (05:16)
[2018-10-05 07:45] VITALS: BP 123/57
[2018-10-05] MEDS: ASPIRIN 81 MG TABLET CHEW PO SCH (08:48)
[2018-10-05] MEDS: MULTIVITAMIN 1 TABLET PO SCH (08:48)
[2018-10-05] MEDS: FLUOXETINE 10 MG CAP PO SCH (08:48)
[2018-10-05] MEDS: CETIRIZINE 10 MG TABLET PO SCH (08:48)
[2018-10-05] MEDS: COLESEVELAM 625 MG TABLET PO SCH (08:48)
[2018-10-05] MEDS: CHOLECALCIFEROL 1,000 UNIT TABLET PO SCH (08:48)
[2018-10-05] MEDS: SODIUM BICARBONATE PO SCH (08:49)
[2018-10-05] MEDS: OMEPRAZOLE PO SCH (08:49)
[2018-10-05] MEDS: MESALAMINE 400 MG CAPSULE.DR PO SCH (08:49)
[2018-10-05] MEDS: [UNRECOGNIZED DRUG - OTHER] HOMEMEDPO SCH (08:49)
[2018-10-05] MEDS: MORPHINE HOMEMEDPO SCH (08:49)
[2018-10-05] MEDS: SENNA/DOCUSATE TABLET PO SCH (08:50)
[2018-10-05] MEDS ORDERED: OXYC5CAP2 PO (12:55)
[2018-10-05] MEDS ORDERED: ASPI-496 PO (12:57)
[2018-10-05 17:04] VITALS: BP 132/54
== END 2018-10-05 18:12 | disposition home health service (06) | DRG 467 ==
LOC: ED 13:37 → EDIP 13:38 → 4NOR 14:40
PROVIDERS: ADMIT Hospitalist; ATTEND Hospitalist
PROC: 0YJ Anatomical Regions, Lower Extremities, Inspection (ICD-10-PCS; 2018-09-29)
PROC: 0SP90JZ Removal of Synthetic Substitute from Right Hip Joint, Open Approach (ICD-10-PCS; 2018-09-30)
PROC: 0SR90J9 Replacement of Right Hip Joint with Synthetic Substitute, Cemented, Open Approach (ICD-10-PCS; principal; 2018-09-30 13:30)
PROC: 30233N1 Transfusion of Nonautologous Red Blood Cells into Peripheral Vein, Percutaneous Approach (ICD-10-PCS; 2018-10-02)
DX: T84.020A Dislocation of internal right hip prosthesis, initial encounter (principal); F11.20 Opioid dependence, uncomplicated; E44.0 Moderate protein-calorie malnutrition; D62 Acute posthemorrhagic anemia; K50.90 Crohn's disease, unspecified, without complications; Z68.29 Body mass index [BMI] 29.0-29.9, adult; Z88.6 Allergy status to analgesic agent; Z88.0 Allergy status to penicillin; Z88.8 Allergy status to other drugs, medicaments and biological substances; E03.9 Hypothyroidism, unspecified; F32.9 Major depressive disorder, single episode, unspecified; G89.29 Other chronic pain; K21.9 Gastro-esophageal reflux disease without esophagitis; Z82.49 Family history of ischemic heart disease and other diseases of the circulatory system; I10 Essential (primary) hypertension; Z82.5 Family history of asthma and other chronic lower respiratory diseases; M19.90 Unspecified osteoarthritis, unspecified site
CPT/HCPCS: 27250; 36415; 36430; 72170; 80048; 82040; 85014; 85018; 85025; 85027; 85610; 85730; 86850; 86900; 86923; 96374; C1713; G0378; J0171; J0690; J1170; J1885; J2250; J2405; J2704; J2795; J3010; J3360; J3370; Q0162; C1776; J0330; J2270; J2370; J7030; J7050; P9016